=== PATIENT | male | born 1945 | race Caucasian/White ===

== ENCOUNTER 2022-02-07 13:29 | Inpatient (IN) ==
[2022-02-07 15:14] LABS: Basophils # (auto) 0.02 K/uL (0-0.2); Basophils % (auto) 0.1 %; Eosinophils # (auto) 0.07 K/uL (0-0.50); Eosinophils % (auto) 0.5 %; Hematocrit (blood only) 47.9 % (40.1-51.0); Hemoglobin 16.5 g/dl (14.0-18.0); Immature Granulocytes # (auto) 0.07 K/uL (0.00-0.02); Immature Granulocytes % (auto) 0.5 %; Lymphocytes # (auto) 1.41 K/uL (1.2-3.4); Lymphocytes % (auto) 9.3 %; Mean Corpuscular Hemoglobin 33.4 pg (25.0-34.0); Mean Corpuscular Hgb Conc 34.4 g/dL (32.0-36.0); Mean Platelet Volume 10.5 fL (9.4-12.4); Monocytes # (auto) 0.75 K/uL (0.24-0.82); Neutrophils # (auto) 12.82 K/uL (1.4-6.5); Neutrophils % (auto) 84.6 %; Platelet Count 149 K/uL (130-400); RDW Coefficient of Variation 13.1 % (11.5-14.5); RDW Standard Deviation 46.9 fL (36.4-46.3); Red Blood Count 4.94 M/uL (4.63-6.08); White Blood Count 15.14 K/ul (4.8-10.8)
[2022-02-07 15:22] LABS: Troponin I High Sensitivity 12.5 pg/ml (0-20)
[2022-02-07 15:30] LABS: Albumin Globulin Ratio 1.3 (0.9-2); Albumin Level 4.2 gm/dl (3.4-5.0); BUN Creatinine Ratio 23.4 (10-20); Bilirubin,Total 1.3 mg/dl (0.2-1.0); Calcium 10.4 mg/dl (8.5-10.1); Creatinine Clr Calc Pharmacy 56.4 ml/min; Est GFR (African American) 64.6 ml/min; Est GFR (Non-African American) 55.7 ml/min; Globulin 3.3 gm/dl (2.5-4.0); Potassium 4.1 mmol/L (3.5-5.1); Total Protein 7.5 gm/dl (6.0-8.3)
[2022-02-07 15:32] LABS: Influenza A virus by PCR Negative (Neg); Influenza B virus by PCR Negative (Neg); RSV by PCR Negative (Neg); SARS CoV2 RNA(COVID-19) Ceph NEGATIVE (Negative)
[2022-02-07] MEDS ORDERED: methylPREDNISolone 125 MG/2 ML VIAL IV STA (18:37)
[2022-02-07] MEDS ORDERED: diphenhydrAMINE 50 MG/ML VIAL IV STA (18:37)
--- NOTE | 2022-02-07 18:37 | Emergency Department Note ---
Impression & Plan Bilateral pneumonia, Hemoptysis ED Provider Note NAME: VENTURA LANCASTRE AGE: 77 SEX: M : 1945 ARRIVES VIA: Walk-In INFORMANT: Patient ED PROVIDER(S): Aldo Noonan DO CHIEF COMPLAINT: coughing up blood HPI: Patient is a 77-year-old male with a past medical history of COPD and a chronic cough which has been present for years. He notes that this has gotten worse over the past 2 to 3 weeks. He notes over the past 48 hours she started coughing up brown stuff yesterday and today he notes he will intermittently cough up a little bit of blood. Over the past 4 to 5 hours he coughed up blood about 2-3 times. Never bigger than a dime size and most the time and has little flecks of blood in the sputum. Denies any chest pain or belly pain. No nausea, vomiting, or diarrhea. He notes he does feel sore in the abdomen following coughing. ROS: See above HPI for pertinent positives & negatives. A total of 10 systems reviewed and were otherwise negative. PAST MEDICAL HISTORY:See Below PAST SURGICAL HISTORY:See Below FAMILY HISTORY:See Below SOCIAL HISTORY:See Below HOME MEDICATIONS:See Below ALLERGIES:See Below VITALS:See Below PHYSICAL EXAMINATION: GENERAL: Sitting up in bed, alert, well appearing, well nourished, no distress, non-toxic EYE EXAM: normal conjunctiva. OROPHARYNX: no exudate, no erythema, lips, buccal mucosa, and tongue normal and mucous membranes are moist NECK: supple, no nuchal rigidity, no adenopathy, non-tender LUNGS: Clear to auscultation. Normal chest wall mechanics HEART: no murmurs, S1 normal and S2 normal ABDOMEN: abdomen soft, non-tender, normo-active bowel sounds, no masses, no rebound or guarding. UPPER EXTREMITIES: upper extremities are grossly normal. LOWER EXTREMITIES: No pitting edema. Calves are equal bilateral NEURO EXAM: Normal sensorium, cranial nerves II-XII grossly intact, normal speech, no gross weakness of arms, no gross weakness of legs. MEDICAL DECISION MAKING: Patient 77-year-old male who presents ER for upper respiratory symptoms. IV was established blood work was obtained. Labs show leukocytosis 15,000. No significant anemia. INR unremarkable. BMP along with LFTs was unremarkable. T bili slightly elevated at 1.3. Troponin was negative. Influenza COVID and RSV was negative. CTA of the chest showed multifocal pneumonia. He was given IV Rocephin and azithromycin. Updated bedside. Discussed the hospitalist admitted for further work-up with his moderate curb 65 score. Triage Nursing notes reviewed. Limited review of prior medical records performed Vital Signs: reviewed and remarkable for no significant abnormalities Differential diagnosis: Cardiac ischemia, aortic dissection, pulmonary embolism, pneumothorax, pneumonia, pericarditis, myocarditis, esophageal rupture, GERD, cholecystitis, pancreatitis, musculoskeletal, as well as other pathologies. ER treatment provided: See below Diagnostics interpreted by me: ECG: Sinus rhythm rate of 91 First-degree AV block Right bundle branch block T wave inversion V1 through V3 QTC 462 Right bundle branch block is new comparison to 2011 Cardiac Monitoring: An order was placed for continuous cardiac monitoring. The monitor shows a rate of 90 with sinus rhythm. Laboratory studies: As stated above and show below. Imaging studies: CT angio chest as described above Consultation(s): Discussed with Sara Roque for further evaluation Procedures: none Critical Care: None Past Med/Surg History Social History Smoking Status: Former smoker Hx Alcohol Use: Yes Hx Substance Use: No Preferred Language: Chinese Communication Ability: Effective Occupational Therapy Technician Required: No Beliefs That Will Affect Care: None Current Living Situation: Alone Feels Safe at Home: Yes Safety Concerns: Feels Safe At This Time Allergies Allergies Allergy/AdvReac Type Severity Reaction Status Date / Time Iodinated Contrast Media AdvReac Unknown "GOT VERY Verified 03/04/15 10:46 HOT" (WITH MRI DYE) Home Meds Home Medications Medication Instructions Recorded Confirmed Aspirin Enteric Coated (Ecotrin Or 81 mg PO DAILY ##0 04/18/11 02/07/22 Generic *) LISINOPRIL (ZESTRIL) 30 mg PO DAILY ##0 04/18/11 02/07/22 CYANOCOBALAMIN (B-12) PO BID ##0 03/04/15 OXYCODONE/ACETAMINOPHEN 5MG/325MG 1 - 2 tab PO Q4H PRN Pain, Severe 02/07/22 02/07/22 (PERCOCET 5MG/325MG) Results & Data (ED) Vital Signs Vital Signs - 24 hr 02/07/22 13:42 02/07/22 14:32 02/07/22 14:32 Temperature 36.6 C Temperature Source Temporal Artery Scan Pulse Rate 101 H 78 Pulse Rate [Right Finger] Pulse Rate from SpO2 Sensor Pulse Rhythm [Right Finger] Pulse Strength [Right Finger] Respiratory Rate 18 19 19 Respiratory Effort / Characteristics Non-Labored Spontaneous Respiratory Depth Respiratory Pattern Blood Pressure 147/87 H Blood Pressure [Right Arm] Blood Pressure Mean 107 Blood Pressure Mean [Right Arm] Blood Pressure Position [Right Arm] Pulse Oximetry 95 96 96 Oxygen Delivery Method Room Air Room Air Room Air Sepsis Recent Fever Within 48 Hours No Sepsis New/Unexplained Change in Mental Status N/A Sepsis Action Taken by Nursing No Action Required Oxygen Flow Rate - Titration Pulse Oximetry Post Tiitration 02/07/22 18:30 02/07/22 18:30 02/07/22 20:00 Temperature Temperature Source Pulse Rate Pulse Rate [Right Finger] 88 83 Pulse Rate from SpO2 Sensor Pulse Rhythm [Right Finger] Regular Pulse Strength [Right Finger] Normal Normal Respiratory Rate 18 20 Respiratory Effort / Characteristics Non-Labored Non-Labored Spontaneous Respiratory Depth Normal Normal Respiratory Pattern Regular Blood Pressure Blood Pressure [Right Arm] 145/110 H 157/94 H Blood Pressure Mean Blood Pressure Mean [Right Arm] 121 115 Blood Pressure Position [Right Arm] Lying Pulse Oximetry 94 91 Oxygen Delivery Method Room Air Room Air Room Air Sepsis Recent Fever Within 48 Hours Sepsis New/Unexplained Change in Mental Status Sepsis Action Taken by Nursing Oxygen Flow Rate - Titration Pulse Oximetry Post Tiitration 02/07/22 21:00 02/07/22 20:41 02/07/22 20:50 Temperature Temperature Source Pulse Rate 76 74 Pulse Rate [Right Finger] Pulse Rate from SpO2 Sensor 76 72 Pulse Rhythm [Right Finger] Pulse Strength [Right Finger] Respiratory Rate 17 Respiratory Effort / Characteristics Respiratory Depth Respiratory Pattern Blood Pressure Blood Pressure [Right Arm] Blood Pressure Mean Blood Pressure Mean [Right Arm] Blood Pressure Position [Right Arm] Pulse Oximetry 87 L 91 90 Oxygen Delivery Method Room Air Sepsis Recent Fever Within 48 Hours Sepsis New/Unexplained Change in Mental Status Sepsis Action Taken by Nursing Oxygen Flow Rate - Titration 4 Pulse Oximetry Post Tiitration 91 02/07/22 21:00 02/07/22 21:10 02/07/22 21:20 Temperature Temperature Source Pulse Rate 75 73 74 Pulse Rate [Right Finger] Pulse Rate from SpO2 Sensor 78 73 74 Pulse Rhythm [Right Finger] Pulse Strength [Right Finger] Respiratory Rate 19 20 Respiratory Effort / Characteristics Respiratory Depth Respiratory Pattern Blood Pressure 157/94 H Blood Pressure [Right Arm] Blood Pressure Mean 115 Blood Pressure Mean [Right Arm] Blood Pressure Position [Right Arm] Pulse Oximetry 87 L 90 90 Oxygen Delivery Method Sepsis Recent Fever Within 48 Hours Sepsis New/Unexplained Change in Mental Status Sepsis Action Taken by Nursing Oxygen Flow Rate - Titration Pulse Oximetry Post Tiitration 02/07/22 21:30 02/07/22 21:40 Temperature Temperature Source Pulse Rate 84 80 Pulse Rate [Right Finger] Pulse Rate from SpO2 Sensor 82 81 Pulse Rhythm [Right Finger] Pulse Strength [Right Finger] Respiratory Rate 22 17 Respiratory Effort / Characteristics Respiratory Depth Respiratory Pattern Blood Pressure Blood Pressure [Right Arm] Blood Pressure Mean Blood Pressure Mean [Right Arm] Blood Pressure Position [Right Arm] Pulse Oximetry 91 91 Oxygen Delivery Method Sepsis Recent Fever Within 48 Hours Sepsis New/Unexplained Change in Mental Status Sepsis Action Taken by Nursing Oxygen Flow Rate - Titration Pulse Oximetry Post Tiitration Laboratory Data Result diagrams: 02/07/22 14:28 02/07/22 14:28 Lab Results 02/07/22 02/07/22 02/07/22 Range/Units 14:28 14:28 14:28 WBC 15.14 H (4.8-10.8) K/ul RBC 4.94 (4.63-6.08) M/uL Hgb 16.5 (14.0-18.0) g/dl Hct 47.9 (40.1-51.0) % MCV 97.0 (80.0-100.0) fL MCH 33.4 (25.0-34.0) pg MCHC 34.4 (32.0-36.0) g/dL RDW Std Deviation 46.9 H (36.4-46.3) fL RDW Coeff of Paula 13.1 (11.5-14.5) % Plt Count 149 (130-400) K/uL MPV 10.5 (9.4-12.4) fL Immature Gran % (Auto) 0.5 % Neut % (Auto) 84.6 % Lymph % (Auto) 9.3 % [place] % (Auto) 5.0 % Eos % (Auto) 0.5 % Baso % (Auto) 0.1 % Neut # (Auto) 12.82 H (1.4-6.5) K/uL Lymph # (Auto) 1.41 (1.2-3.4) K/uL [place] # (Auto) 0.75 (0.24-0.82) K/uL Eos # (Auto) 0.07 (0-0.50) K/uL Baso # (Auto) 0.02 (0-0.2) K/uL Immature Gran # (Auto) 0.07 H (0.00-0.02) K/uL PT Cancelled INR Cancelled APTT Cancelled PTT Ratio Cancelled Sodium 137 (136-145) mmol/L Potassium 4.1 (3.5-5.1) mmol/L Chloride 105 (98-107) mmol/L Carbon Dioxide 24 (21-32) mmol/L Anion Gap 8 (3-11) BUN 29 H (6-23) mg/dl Creatinine 1.24 (0.6-1.4) mg/dl Est Cr Clr Drug Dosing 56.4 ml/min Est GFR ( Amer) 64.6 ml/min Est GFR (Non-Af Amer) 55.7 ml/min BUN/Creatinine Ratio 23.4 H (10-20) Glucose 98 (70-99(Fasting)) mg/dl Calcium 10.4 H (8.5-10.1) mg/dl Magnesium 2.0 (1.7-2.4) mg/dl Total Bilirubin 1.3 H (0.2-1.0) mg/dl AST 15 (13-39) U/L ALT 15 (7-52) U/L Alkaline Phosphatase 40 (34-104) U/L Troponin I High Sens 12.5 (0-20) pg/ml Total Protein 7.5 (6.0-8.3) gm/dl Albumin 4.2 (3.4-5.0) gm/dl Globulin 3.3 (2.5-4.0) gm/dl Albumin/Globulin Ratio 1.3 (0.9-2) SARS-CoV-2 (PCR) (Negative) Influenza Type A (PCR) (Neg) Influenza Type B (PCR) (Neg) RSV (RT-PCR) (Neg) 02/07/22 02/07/22 Range/Units 14:28 19:29 WBC (4.8-10.8) K/ul RBC (4.63-6.08) M/uL Hgb (14.0-18.0) g/dl Hct (40.1-51.0) % MCV (80.0-100.0) fL MCH (25.0-34.0) pg MCHC (32.0-36.0) g/dL RDW Std Deviation (36.4-46.3) fL RDW Coeff of Paula (11.5-14.5) % Plt Count (130-400) K/uL MPV (9.4-12.4) fL Immature Gran % (Auto) % Neut % (Auto) % Lymph % (Auto) % [place] % (Auto) % Eos % (Auto) % Baso % (Auto) % Neut # (Auto) (1.4-6.5) K/uL Lymph # (Auto) (1.2-3.4) K/uL [place] # (Auto) (0.24-0.82) K/uL Eos # (Auto) (0-0.50) K/uL Baso # (Auto) (0-0.2) K/uL Immature Gran # (Auto) (0.00-0.02) K/uL PT 11.0 INR 1.0 APTT 28.5 PTT Ratio 1.0 Sodium (136-145) mmol/L Potassium (3.5-5.1) mmol/L Chloride (98-107) mmol/L Carbon Dioxide (21-32) mmol/L Anion Gap (3-11) BUN (6-23) mg/dl Creatinine (0.6-1.4) mg/dl Est Cr Clr Drug Dosing ml/min Est GFR ( Amer) ml/min Est GFR (Non-Af Amer) ml/min BUN/Creatinine Ratio (10-20) Glucose (70-99(Fasting)) mg/dl Calcium (8.5-10.1) mg/dl Magnesium (1.7-2.4) mg/dl Total Bilirubin (0.2-1.0) mg/dl AST (13-39) U/L ALT (7-52) U/L Alkaline Phosphatase (34-104) U/L Troponin I High Sens (0-20) pg/ml Total Protein (6.0-8.3) gm/dl Albumin (3.4-5.0) gm/dl Globulin (2.5-4.0) gm/dl Albumin/Globulin Ratio (0.9-2) SARS-CoV-2 (PCR) NEGATIVE (Negative) Influenza Type A (PCR) Negative (Neg) Influenza Type B (PCR) Negative (Neg) RSV (RT-PCR) Negative (Neg) Administered Medications Sodium Chloride (Nss 1000ml) 1,000 mls @ 100 mls/hr IV .Q10H ONE Stop: 02/08/22 06:18 Last Admin: 02/07/22 20:34 Dose: 100 mls/hr Documented By: TARIQ Discontinued Medications Albuterol (Albut/Ipratrop 3mg/0.5mg Neb 3 Ml Vial) 3 ml NEB NOW STA; Protocol Stop: 02/07/22 21:33 Last Admin: 02/07/22 21:42 Dose: 3 ml Documented By: TARIQ Benzonatate (Benzonatate 100 Mg Capsule) 100 mg PO NOW ONE Stop: 02/07/22 21:44 Last Admin: 02/07/22 22:30 Dose: 100 mg Documented By: TARIQ Diphenhydramine HCl (Diphenhydramine 50 Mg/Ml Vial) 25 mg IV NOW STA Stop: 02/07/22 18:38 Last Admin: 02/07/22 18:42 Dose: 25 mg Documented By: TUNG Doxycycline Hyclate (Doxycycline Hyclate 100 Mg Cap) 100 mg PO NOW STA Stop: 02/07/22 21:44 Last Admin: 02/07/22 22:30 Dose: 100 mg Documented By: TARIQ Ceftriaxone Sodium (Rocephin) 2,000 mg in 70 mls @ 140 mls/hr IV NOW STA Stop: 02/07/22 20:23 Last Infusion: 02/07/22 21:04 Dose: 0 mls/hr Documented By: Admin: 02/07/22 20:28 Dose: 140 mls/hr Documented By: TARIQ Azithromycin 500 mg/ Dextrose 255 mls @ 127.5 mls/hr IV NOW STA Stop: 02/07/22 21:53 Last Admin: 02/07/22 22:04 Dose: 127.5 mls/hr Documented By: KRISTOPHER Ioversol (Optiray 320 500ml) 106 ml IV ONCE ONE Stop: 02/07/22 19:19 Last Admin: 02/07/22 19:19 Dose: 106 ml Documented By: RHD Methylprednisolone (Methylprednisolone 125 Mg/2 Ml Vial) 125 mg IV NOW STA Stop: 02/07/22 18:38 Last Admin: 02/07/22 18:43 Dose: 125 mg Documented By: AP Imaging Data Radiologist's Impression: Chest X-Ray 02/07/22 13:50 SINGLE VIEW CHEST CLINICAL HISTORY: Dyspnea. FINDINGS: 2 AP, portable, upright chest radiographs are compared to study dated 04/18/2011. The heart is mildly enlarged noting atherosclerotic calcification of the thoracic aorta. The pulmonary vasculature is noncongested. Emphysema and chronic interstitial thickening is similar to previous. There is bibasilar airspace consolidation. No large pleural effusion or pneumothorax is seen. The skeletal structures are osteopenic. The bony thorax is grossly intact. IMPRESSION: 1. Cardiomegaly and emphysema. 2. Bibasilar airspace consolidation is typical for pneumonia/aspiration pneumonitis. Clinical correlation required and radiographic follow-up to resolution is recommended. ACT 112: Negative or not required by law. Electronically signed by: Alfonzo Yee M.D. 02/07/2022 7:23 PM Chest CTA 02/07/22 18:35 CT ANGIOGRAM OF THE CHEST CLINICAL HISTORY: Cough. Dyspnea. COMPARISON STUDY: Chest x-ray dated 02/07/2022. TECHNIQUE: Following the IV administration of 106 cc of Optiray 320, CT angiogram of the chest was performed from the upper abdomen to the thoracic inlet utilizing the pulmonary embolus protocol. Images are reviewed in the axial, sagittal, and coronal planes. 3-D MIPS images are created and assessed. IV contrast was administered without complication. A dose lowering technique was utilized adhering to the principles of ALARA. CT DOSE: 518.17 mGycm FINDINGS: Thyroid: Imaged portions of the thyroid gland are normal in size and attenuation. Thoracic aorta: There is atherosclerotic calcification of the thoracic aorta, which is normal in caliber and demonstrates standard 3-vessel arch anatomy. No dissection is seen. Pulmonary vasculature: The pulmonary trunk is normal in caliber. There are no filling defects identified in main, lobar, or segmental pulmonary branches to suggest pulmonary embolus. Heart: The heart is enlarged and without pericardial effusion. The coronary arteries are densely calcified. Lungs and pleural spaces: There is moderate emphysema. Dependent airspace consolidation is seen at both lung bases. Mild patchy consolidation is also seen in the right middle lobe. A 13 mm irregular opacity is seen in the right upper lobe on image #225. No pleural effusion is identified. The trachea is clear. Secretions are noted in the right mainstem bronchus. An 8 mm nodular opacity right middle lobe along the minor fissure is seen on image #109. Mediastinum: There is no mediastinal lymphadenopathy. Amy: Clear. Axillae: There is no axillary lymphadenopathy. Upper abdomen: There is a small hiatal hernia. A 4 cm cyst is partially visualized in the upper pole of the right kidney. Skeletal structures: The skeletal structures are osteopenic. No lytic or blastic bony lesions are seen. Degenerative change is noted in the shoulders and thoracic spine. IMPRESSION: 1. There is no evidence of pulmonary embolus in the main, lobar, or segmental pulmonary arteries. 2. Cardiomegaly and emphysema. 3. Bibasilar airspace consolidation is typical for pneumonia/aspiration pneumonitis. Clinical correlation will be required and radiographic follow-up to resolution is recommended. 4. A 13 mm irregular opacity in the right upper lobe may also be an inflammatory basis. A follow-up chest CT in 4 months time is recommended for reassessment as a small lung cancer could appear similar. 5. Additional findings as above. ACT 112: Positive. There are findings on this exam that require communication between the performing entity and the patient following Patient Test Result Information Act ([place] Act 112) guidelines. Electronically signed by: Alfonzo Yee M.D. 02/07/2022 7:42 PM Discharge Plan Visit Data Chief Complaint: Cough Stated Complaint: COUGHING UP BLOOD ED Provider: Aldo Noonan Discharge Problem: Bilateral pneumonia, Hemoptysis Discharge Instructions Interventions: ED Discharge Assessment Last Done: 02/07/22 22:03
[2022-02-07] MEDS ORDERED: OPTIRAY 320 500ml IV ONE (19:18)
--- NOTE | 2022-02-07 19:25 | XRay Report ---
SINGLE VIEW CHEST CLINICAL HISTORY: Dyspnea. FINDINGS: 2 AP, portable, upright chest radiographs are compared to study dated 04/18/2011. The heart i s mildly enlarged noting atherosclerotic calcification of the thoracic aorta. The pulmonary vasculatu re is noncongested. Emphysema and chronic interstitial thickening is similar to previous. There is bi basilar airspace consolidation. No large pleural effusion or pneumothorax is seen. The skeletal struc tures are osteopenic. The bony thorax is grossly intact. IMPRESSION: 1. Cardiomegaly and emphysema. 2. Bibasilar airspace consolidation is typical for pneumonia/aspiration pneumonitis. Clinical correla tion required and radiographic follow-up to resolution is recommended. ACT 112: Negative or not required by law. Electronically signed by: Alfonzo Yee M.D. 02/07/2022 7:23 PM
--- NOTE | 2022-02-07 19:43 | CT Scan Report ---
CT ANGIOGRAM OF THE CHEST CLINICAL HISTORY: Cough. Dyspnea. COMPARISON STUDY: Chest x-ray dated 02/07/2022. TECHNIQUE: Following the IV administration of 106 cc of Optiray 320, CT angiogram of the chest was pe rformed from the upper abdomen to the thoracic inlet utilizing the pulmonary embolus protocol. Images are reviewed in the axial, sagittal, and coronal planes. 3-D MIPS images are created and assessed. I V contrast was administered without complication. A dose lowering technique was utilized adhering to the principles of ALARA. CT DOSE: 518.17 mGycm FINDINGS: Thyroid: Imaged portions of the thyroid gland are normal in size and attenuation. Thoracic aorta: There is atherosclerotic calcification of the thoracic aorta, which is normal in jef ashely and demonstrates standard 3-vessel arch anatomy. No dissection is seen. Pulmonary vasculature: The pulmonary trunk is normal in caliber. There are no filling defects identif ied in main, lobar, or segmental pulmonary branches to suggest pulmonary embolus. Heart: The heart is enlarged and without pericardial effusion. The coronary arteries are densely calc ified. Lungs and pleural spaces: There is moderate emphysema. Dependent airspace consolidation is seen at dave th lung bases. Mild patchy consolidation is also seen in the right middle lobe. A 13 mm irregular opa [place] is seen in the right upper lobe on image #225. No pleural effusion is identified. The trachea i s clear. Secretions are noted in the right mainstem bronchus. An 8 mm nodular opacity right middle lo be along the minor fissure is seen on image #109. Mediastinum: There is no mediastinal lymphadenopathy. Amy: Clear. Axillae: There is no axillary lymphadenopathy. Upper abdomen: There is a small hiatal hernia. A 4 cm cyst is partially visualized in the upper pole of the right kidney. Skeletal structures: The skeletal structures are osteopenic. No lytic or blastic bony lesions are see n. Degenerative change is noted in the shoulders and thoracic spine. IMPRESSION: 1. There is no evidence of pulmonary embolus in the main, lobar, or segmental pulmonary arteries. 2. Cardiomegaly and emphysema. 3. Bibasilar airspace consolidation is typical for pneumonia/aspiration pneumonitis. Clinical correla tion will be required and radiographic follow-up to resolution is recommended. 4. A 13 mm irregular opacity in the right upper lobe may also be an inflammatory basis. A follow-up c hest CT in 4 months time is recommended for reassessment as a small lung cancer could appear similar. 5. Additional findings as above. ACT 112: Positive. There are findings on this exam that require communication between the performing entity and the patient following Patient Test Result Information Act ([place] Act 112) guidelines. Electronically signed by: Alfonzo Yee M.D. 02/07/2022 7:42 PM
[2022-02-07 19:53] LABS: Partial Thromboplastin Time 28.5 Seconds (21.0-31.0)
[2022-02-07] MEDS ORDERED: AZITHROMYCIN 500 MG in DEXTROSE 5% 250 ML IV STA (19:54)
[2022-02-07] MEDS ORDERED: cefTRIAXone SODIUM 2,000 MG/70 ML BAG IV STA (19:54)
[2022-02-07] MEDS ORDERED: SODIUM CHLORIDE 0.9% 1000ML 1,000 ML IV ONE (20:19)
[2022-02-07] MEDS ORDERED: ALBUT/IPRATROP 3MG/0.5MG NEB 3 ML VIAL NEB STA (21:32)
--- NOTE | 2022-02-07 21:35 | History & Physical Report ---
Date of Service February 07, 2022 Assessment & Plan (1) Acute hypoxemic respiratory failure: Plan: Secondary to COPD exacerbation from community-acquired pneumonia No overt sepsis for now Hemoptysis secondary to above Home aspirin contributory hypertension, slight elevated past history DVT as per records past tobacco abuse Medical telemetry Supplemental O2 Baseline ABG Ceftriaxone and doxycycline Nebs RTC, prednisone course Antitussives for hemoptysis Appropriate to hold home aspirin for now given hemoptysis Pulmonary consult Re: Hemoptysis DVT prophylaxis. SCDs Re: Hemoptysis Full code Patient would like to reestablish primary care at [facility] upon discharge. Text document was generated using [employer] voice recognition software. It may contain grammatical or spelling errors. Kindly contact undersigned for clarification of any documentation item in question. History of Present Illness Chief Complaint: Hemoptysis, worsening shortness of breath Primary Care Provider: CHASIDY Sloan, [place] in [place], [place] Patient would like to reestablish primary care at [facility] upon discharge. History obtained from patient and records. Medical history significant for COPD, hypertension, hyperlipidemia, urolithiasis, past history DVT as per records, past tobacco abuse. Last confinement 2011 under orthopedic service for left hip surgery. 2 weeks ago, patient chronic cough (which he attributes to Agent [place] exposure in [place]) noted to be worsening. Patient not sure about COVID-19 contacts. Has not received COVID-19 vaccination. Denies aspiration. 2 days ago, patient coughing out from brown junk later noted to have flecks of blood. No fever, no chills. Worsening shortness of breath on exertion. Chest tightness from coughing. No weight gain. Aching abdominal pain from coughing. 10 pound weight loss in 2 weeks as per patient. PCP directed patient to ER for further evaluation. O2 sats 80s at 1 point during ER stay. Solu-Medrol, Ceftriaxone and Azithromycin administered at the ER. 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 Allergies Allergy/AdvReac Type Severity Reaction Status Date / Time Iodinated Contrast Media AdvReac Unknown "GOT VERY Verified 03/04/15 10:46 HOT" (WITH MRI DYE) Home Medications Medication Instructions Recorded Confirmed Type Aspirin Enteric Coated (Ecotrin Or 81 mg PO DAILY ##0 04/18/11 02/07/22 History Generic *) LISINOPRIL (ZESTRIL) 30 mg PO DAILY ##0 04/18/11 02/07/22 History B12 1,000 mcg PO DAILY 02/07/22 02/07/22 History Vitamin C 500 mg PO DAILY 02/07/22 02/07/22 History albuterol sulfate 90 mcg/actuation 2 inh inhalation Q6H PRN 02/07/22 02/07/22 History aerosol inhaler Bronchospasm amlodipine 5 mg PO DAILY 02/07/22 02/07/22 History budesonide-formoterol 160 puff inhalation BID 02/07/22 02/07/22 History Past Med/Surg History Social History Smoking Status: Former smoker Hx Alcohol Use: Yes Hx Substance Use: No Preferred Language: Occitan Communication Ability: Effective 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 Beliefs That Will Affect Care: None Current Living Situation: Alone Feels Safe at Home: Yes Safety Concerns: Feels Safe At This Time Review of Systems Review of Systems: As per HPI, all other systems reviewed and negative Physical Exam Physical Exam: GENERAL: Comfortable, pleasant , slightly anxious, no respiratory distress SKIN: Normal color, warm HEENT: [place] palpebral conjunctivae, no ptosis, dry buccal mucosa, nasal cannula in place NECK : Supple, no tenderness CHEST : Decreased breath sounds, no tenderness HEART : RRR, no obvious murmurs ABDOMEN: Some distention, nontender EXTREMITIES : No LE swelling/tenderness, no other conspicuous deformities noted NEUROLOGIC : Coherent, no facial asymmetry, no other gross focality Results & Data Results & Data ([facility]) Vital Signs (Past 12 Hours) Vital Signs Temp Pulse Pulse Resp BP BP Pulse Ox 02/07/22 21:20 74 20 157/94 H 90 02/07/22 21:10 73 90 02/07/22 21:00 75 19 87 L 02/07/22 20:50 74 90 02/07/22 20:41 76 17 91 02/07/22 21:00 87 L 02/07/22 20:00 83 20 157/94 H 91 02/07/22 18:30 02/07/22 18:30 88 18 145/110 H 94 02/07/22 14:32 78 19 96 02/07/22 14:32 19 96 02/07/22 13:42 36.6 C 101 H 18 147/87 H 95 O2 Del Method 02/07/22 21:20 02/07/22 21:10 02/07/22 21:00 02/07/22 20:50 02/07/22 20:41 02/07/22 21:00 Room Air 02/07/22 20:00 Room Air 02/07/22 18:30 Room Air 02/07/22 18:30 Room Air 02/07/22 14:32 Room Air 02/07/22 14:32 Room Air 02/07/22 13:42 Room Air Laboratory Results Laboratory Results WBC 15.14 K/ul (4.8-10.8) H 02/07/22 14:28 RBC 4.94 M/uL (4.63-6.08) 02/07/22 14:28 Hgb 16.5 g/dl (14.0-18.0) 02/07/22 14:28 Hct 47.9 % (40.1-51.0) 02/07/22 14:28 MCV 97.0 fL (80.0-100.0) 02/07/22 14:28 MCH 33.4 pg (25.0-34.0) 02/07/22 14:28 MCHC 34.4 g/dL (32.0-36.0) 02/07/22 14:28 RDW Std Deviation 46.9 fL (36.4-46.3) H 02/07/22 14:28 RDW Coeff of Paula 13.1 % (11.5-14.5) 02/07/22 14:28 Plt Count 149 K/uL (130-400) 02/07/22 14:28 MPV 10.5 fL (9.4-12.4) 02/07/22 14:28 Immature Gran % (Auto) 0.5 % 02/07/22 14:28 Neut % (Auto) 84.6 % 02/07/22 14:28 Lymph % (Auto) 9.3 % 02/07/22 14:28 [place] % (Auto) 5.0 % 02/07/22 14:28 Eos % (Auto) 0.5 % 02/07/22 14:28 Baso % (Auto) 0.1 % 02/07/22 14:28 Neut # (Auto) 12.82 K/uL (1.4-6.5) H 02/07/22 14:28 Lymph # (Auto) 1.41 K/uL (1.2-3.4) 02/07/22 14: [place] # (Auto) 0.75 K/uL (0.24-0.82) 02/07/22 14:28 Eos # (Auto) 0.07 K/uL (0-0.50) 02/07/22 14: Baso # (Auto) 0.02 K/uL (0-0.2) 02/07/22 14: Immature Gran # (Auto) 0.07 K/uL (0.00-0.02) H 02/07/22 14: PT 11.0 Seconds (9.0-12.0) 02/07/22 19:29 INR 1.0 (0.9-1.1) 02/07/22 19:29 APTT 28.5 Seconds (21.0-31.0) 02/07/22 19: PTT Ratio 1.0 02/07/22 19:29 Sodium 137 mmol/L (136-145) 02/07/22 14:28 Potassium 4.1 mmol/L (3.5-5.1) 02/07/22 14: Chloride 105 mmol/L (98-107) 02/07/22 14: Carbon Dioxide 24 mmol/L (21-32) 02/07/22 14:28 Anion Gap 8 (3-11) 02/07/22 14:28 BUN 29 mg/dl (6-23) H 02/07/22 14:28 Creatinine 1.24 mg/dl (0.6-1.4) 02/07/22 14:28 Est Cr Clr Drug Dosing 56.4 ml/min 02/07/22 14:28 Est GFR ( Amer) 64.6 ml/min 02/07/22 14:28 Est GFR (Non-Af Amer) 55.7 ml/min 02/07/22 14:28 BUN/Creatinine Ratio 23.4 (10-20) H 02/07/22 14:28 Glucose 98 mg/dl (70-99(Fasting)) 02/07/22 14:28 Calcium 10.4 mg/dl (8.5-10.1) H 02/07/22 14:28 Magnesium 2.0 mg/dl (1.7-2.4) 02/07/22 14:28 Total Bilirubin 1.3 mg/dl (0.2-1.0) H 02/07/22 14:28 AST 15 U/L (13-39) 02/07/22 14:28 ALT 15 U/L (7-52) 02/07/22 14:28 Alkaline Phosphatase 40 U/L (34-104) 02/07/22 14:28 Troponin I High Sens 12.5 pg/ml (0-20) 02/07/22 14:28 Total Protein 7.5 gm/dl (6.0-8.3) 02/07/22 14:28 Albumin 4.2 gm/dl (3.4-5.0) 02/07/22 14:28 Globulin 3.3 gm/dl (2.5-4.0) 02/07/22 14:28 Albumin/Globulin Ratio 1.3 (0.9-2) 02/07/22 14:28 SARS-CoV-2 (PCR) NEGATIVE (Negative) 02/07/22 14:28 Influenza Type A (PCR) Negative (Neg) 02/07/22 14:28 Influenza Type B (PCR) Negative (Neg) 02/07/22 14:28 RSV (RT-PCR) Negative (Neg) 02/07/22 14:28 Impressions Chest X-Ray 02/07/22 13:50 SINGLE VIEW CHEST CLINICAL HISTORY: Dyspnea. FINDINGS: 2 AP, portable, upright chest radiographs are compared to study dated 04/18/2011. The heart is mildly enlarged noting atherosclerotic calcification of the thoracic aorta. The pulmonary vasculature is noncongested. Emphysema and chronic interstitial thickening is similar to previous. There is bibasilar airspace consolidation. No large pleural effusion or pneumothorax is seen. The skeletal structures are osteopenic. The bony thorax is grossly intact. IMPRESSION: 1. Cardiomegaly and emphysema. 2. Bibasilar airspace consolidation is typical for pneumonia/aspiration pneumonitis. Clinical correlation required and radiographic follow-up to resolution is recommended. ACT 112: Negative or not required by law. Electronically signed by: Alfonzo Yee M.D. 02/07/2022 7:23 PM Chest CTA 02/07/22 18:35 CT ANGIOGRAM OF THE CHEST CLINICAL HISTORY: Cough. Dyspnea. COMPARISON STUDY: Chest x-ray dated 02/07/2022. TECHNIQUE: Following the IV administration of 106 cc of Optiray 320, CT angiogram of the chest was performed from the upper abdomen to the thoracic inlet utilizing the pulmonary embolus protocol. Images are reviewed in the axial, sagittal, and coronal planes. 3-D MIPS images are created and assessed. IV contrast was administered without complication. A dose lowering technique was utilized adhering to the principles of ALARA. CT DOSE: 518.17 mGycm FINDINGS: Thyroid: Imaged portions of the thyroid gland are normal in size and attenuation. Thoracic aorta: There is atherosclerotic calcification of the thoracic aorta, which is normal in caliber and demonstrates standard 3-vessel arch anatomy. No dissection is seen. Pulmonary vasculature: The pulmonary trunk is normal in caliber. There are no filling defects identified in main, lobar, or segmental pulmonary branches to suggest pulmonary embolus. Heart: The heart is enlarged and without pericardial effusion. The coronary arteries are densely calcified. Lungs and pleural spaces: There is moderate emphysema. Dependent airspace consolidation is seen at both lung bases. Mild patchy consolidation is also seen in the right middle lobe. A 13 mm irregular opacity is seen in the right upper lobe on image #225. No pleural effusion is identified. The trachea is clear. Secretions are noted in the right mainstem bronchus. An 8 mm nodular opacity right middle lobe along the minor fissure is seen on image #109. Mediastinum: There is no mediastinal lymphadenopathy. Amy: Clear. Axillae: There is no axillary lymphadenopathy. Upper abdomen: There is a small hiatal hernia. A 4 cm cyst is partially visualized in the upper pole of the right kidney. Skeletal structures: The skeletal structures are osteopenic. No lytic or blastic bony lesions are seen. Degenerative change is noted in the shoulders and thoracic spine. IMPRESSION: 1. There is no evidence of pulmonary embolus in the main, lobar, or segmental pulmonary arteries. 2. Cardiomegaly and emphysema. 3. Bibasilar airspace consolidation is typical for pneumonia/aspiration pneumonitis. Clinical correlation will be required and radiographic follow-up to resolution is recommended. 4. A 13 mm irregular opacity in the right upper lobe may also be an inflammatory basis. A follow-up chest CT in 4 months time is recommended for reassessment as a small lung cancer could appear similar. 5. Additional findings as above. ACT 112: Positive. There are findings on this exam that require communication between the performing entity and the patient following Patient Test Result Information Act ([place] Act 112) guidelines. Electronically signed by: Alfonzo Yee M.D. 02/07/2022 7:42 PM Diagnostic Findings EKG as per my interpretation : Rate 90, NSR, normal axis, RBBB, no ischemia
[2022-02-07] MEDS ORDERED: BENZONATATE 100 MG CAPSULE PO ONE (21:43)
[2022-02-07] MEDS ORDERED: PROMETHAZINE HCL 12.5 MG in SODIUM CHLORIDE 0.9% 50 ML IV PRN (21:43)
[2022-02-07] MEDS ORDERED: traMADol HCL 50 MG TABLET PO PRN (21:43)
[2022-02-07] MEDS ORDERED: DOXYCYCLINE HYCLATE 100 MG CAP PO STA (21:43)
[2022-02-07] MEDS ORDERED: BENZONATATE 100 MG CAPSULE PO PRN (22:03)
[2022-02-07 22:52] LABS: Base Excess ABG -3.3 mEq/L (-9-1.8); HCO3 ABG 20 mmol/L (19-24); Oxygen Saturation ABG 99.6 % (90-95); PCO2 ABG 30 mmHg (35-46); PO2 ABG 111 mmHg (80-95); pH ABG 7.43 (7.35-7.45)
[2022-02-07 22:57] LABS: Allen Test POS (Pos)
[2022-02-07] MEDS ORDERED: amLODIPine BESYLATE 5 MG TAB PO ONE (23:30)
[2022-02-08] MEDS ORDERED: ACETAMINOPHEN 325 MG TAB PO PRN (01:44)
[2022-02-08] MEDS ORDERED: XOPENEX/ATROVENT 1.25mg/0.5MG NEB COMBO NEB SCH (07:00)
[2022-02-08 07:19] LABS: Hematocrit (blood only) 44.1 % (40.1-51.0); Mean Corpuscular Hemoglobin 32.8 pg (25.0-34.0); Mean Corpuscular Volume 96.3 fL (80.0-100.0); Mean Platelet Volume 10.3 fL (9.4-12.4); Platelet Count 147 K/uL (130-400); RDW Coefficient of Variation 12.6 % (11.5-14.5); RDW Standard Deviation 44.7 fL (36.4-46.3); Red Blood Count 4.58 M/uL (4.63-6.08); White Blood Count 8.09 K/ul (4.8-10.8)
--- NOTE | 2022-02-08 07:20 | Pulmonary Consultation ---
Date of Consultation February 08, 2022 Assessment & Plan (1) Bilateral pneumonia: (2) Hemoptysis: (3) COPD with acute exacerbation: (4) Pulmonary nodule: Plan CT chest 02/07/2022 personally reviewed: Centrilobular emphysema appreciated bilaterally Mucus appreciated in the right main, groundglass opacity in the right middle lobe 8 mm right middle lobe pulmonary nodule Bilateral lower lobe consolidative changes No mediastinal adenopathy 02/07/2022: ABG 7.43/30/111 on 4 L -- Hemoptysis Likely secondary to extensive coughing Antitussive medication [id number] Avoid flutter valve for the time being -- Multilobar pneumonia Bilateral lower lobes Continue with antibiotics for 5 to 7 days -- COPD emphysema On Symbicort and Spiriva at home -- Pulmonary nodule 8 mm right middle lobe pulmonary nodule Repeat CT chest in 3-4 months Plan: Continue with antitussive medication [id number] Continue with prednisone Anoro while in the hospital Complete the course of doxycycline for 5 days Please note the above document was generated using voice recognition software. It may contain grammatical, syntax or spelling errors.Any formal questions or concerns about the content, text or information contained within the body of this dictation should be directly addressed to the provider for clarification. History of Present Illness Attending Physician: Chacho Haynes MD History of Present Illness 77-year-old male came to the hospital with complaints of worsening shortness of breath and hemoptysis Past medical history: Hypertension, dyslipidemia, ex-smoker At the time of examination patient says that he has been having issues with coughing and bringing up phlegm since last 2 weeks. Yesterday while he was coughing he brought up blood which was bright red. He did not have any episodes of hemoptysis since coming to the hospital. He is bringing up phlegm which is dark brown in color. I personally looked at it. Denies any chest pain. No headache, no blurry vision No dysuria, diarrhea Patient has lost some weight approximately 10 pounds in the last month or so which seems to be unintentional. Denies any nausea or vomiting. Social history: [id number] smoking history, quit at the age of 60. 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 Pets: No birds reported nearby Asthma: No family history of asthma Lung cancer: No history of lung cancer in the family as per the patient Allergies Allergy/AdvReac Type Severity Reaction Status Date / Time Iodinated Contrast Media AdvReac Unknown "GOT VERY Verified 03/04/15 10:46 HOT" (WITH MRI DYE) Home Medications Medication Instructions Recorded Confirmed Type Aspirin Enteric Coated (Ecotrin Or 81 mg PO DAILY ##0 04/18/11 02/07/22 History Generic *) LISINOPRIL (ZESTRIL) 30 mg PO DAILY ##0 04/18/11 02/07/22 History B12 1,000 mcg PO DAILY 02/07/22 02/07/22 History Vitamin C 500 mg PO DAILY 02/07/22 02/07/22 History albuterol sulfate 90 mcg/actuation 2 inh inhalation Q6H PRN 02/07/22 02/07/22 History aerosol inhaler Bronchospasm amlodipine 5 mg PO DAILY 02/07/22 02/07/22 History budesonide-formoterol 160 puff inhalation BID 02/07/22 02/07/22 History Patient History Social History Smoking Status: Former smoker Hx Alcohol Use: Yes Hx Substance Use: No Preferred Language: Moroccan Communication Ability: Effective 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: No Beliefs That Will Affect Care: None Current Living Situation: Alone Feels Safe at Home: Yes Safety Concerns: Feels Safe At This Time Review of Systems Review of Systems: All systems reviewed & are unremarkable except as noted in HPI & below Physical Exam Physical Exam: Constitutional: No acute distress HEENT: EOMI, PERRLA Respiratory system: Decreased air entry bilaterally, no wheeze, no rhonchi, positive crackles bilateral lower lobes CVS: S1-S2 positive, no murmurs or gallops Abdomen: Soft, nontender, nondistended, positive bowel sounds x4 Extremities: +2 pulses bilaterally radialis/ dorsalis pedis, no cyanosis, no edema Neuro: Awake alert oriented x3 Psych: Normal mood and affect G/U: No [place] Skin: no rashes, warm and dry Lymphatic: no cervical or axillary lymphadenopathy Results & Data Results & Data ([facility]) Vital Signs (Past 12 Hours) Vital Signs Temp Pulse Pulse Resp BP BP BP 02/08/22 01:14 77 02/08/22 02:11 02/08/22 02:11 36.8 C 76 18 149/85 H 02/08/22 00:40 81 17 104/55 L 02/07/22 22:55 02/07/22 22:55 37.1 C 94 H 19 161/83 H 02/07/22 22:20 93 H 19 02/07/22 22:10 97 H 19 02/07/22 22:00 91 H 22 02/07/22 21:50 85 22 02/07/22 21:40 80 17 02/07/22 21:30 84 22 02/07/22 22:00 96 H 20 161/83 H 02/07/22 21:20 74 20 157/94 H 02/07/22 21:10 73 02/07/22 21:00 75 19 02/07/22 20:50 74 02/07/22 20:41 76 17 02/07/22 21:00 02/07/22 20:00 83 20 157/94 H Pulse Ox O2 Del Method O2 Flow Rate 02/08/22 01:14 02/08/22 02:11 Nasal Cannula 4 02/08/22 02:11 92 Nasal Cannula 4 02/08/22 00:40 93 Nasal Cannula 4 02/07/22 22:55 Nasal Cannula 4 02/07/22 22:55 93 Nasal Cannula 4 02/07/22 22:20 92 02/07/22 22:10 92 02/07/22 22:00 93 02/07/22 21:50 94 02/07/22 21:40 91 02/07/22 21:30 91 02/07/22 22:00 92 Nasal Cannula 4 02/07/22 21:20 90 02/07/22 21:10 90 02/07/22 21:00 87 L 02/07/22 20:50 90 02/07/22 20:41 91 02/07/22 21:00 87 L Room Air 02/07/22 20:00 91 Room Air Laboratory Results 02/08/22 06:57 02/08/22 06:57 PG Care Time/CCT Total # of Minutes Spent Total Time Spent with Patient: Total time spent is greater than 50% in coordination of care (as documented) at patient's floor/unit and/or counseling patient: Coding Level of Care Code 46637 Initial Inpt Care Lvl 3 Diagnoses Bilateral pneumonia J18.9 Hemoptysis R04.2 COPD with acute exacerbation J44.1 Pulmonary nodule R91.1
[2022-02-08] MEDS: LEVALBUTEROL 1.25MG/0.5ML NEB INH SCH ×3 (07:29→19:15)
[2022-02-08] MEDS: IPRATROPIUM BROMIDE NEB SOLN 0.02% 2.5 ML VIAL INH SCH ×3 (07:29→19:15)
[2022-02-08 07:40] LABS: BUN Creatinine Ratio 26.9 (10-20); Calcium 9.5 mg/dl (8.5-10.1); Creatinine Clr Calc Pharmacy 67.2 ml/min; Est GFR (African American) 79.9 ml/min; Est GFR (Non-African American) 68.9 ml/min; Potassium 4.1 mmol/L (3.5-5.1)
[2022-02-08 08:26] LABS: Basophils # (auto) 0.01 K/uL (0-0.2); Basophils % (auto) 0.1 %; Echinocytes 1+; Immature Granulocytes # (auto) 0.07 K/uL (0.00-0.02); Immature Granulocytes % (auto) 0.9 %; Lymphocytes # (auto) 0.49 K/uL (1.2-3.4); Lymphocytes % (auto) 6.1 %; Monocytes # (auto) 0.12 K/uL (0.24-0.82); Monocytes % (auto) 1.5 %; Neutrophils % (auto) 91.4 %
[2022-02-08] MEDS: amLODIPine BESYLATE 5 MG TAB PO SCH (09:16)
[2022-02-08] MEDS: predniSONE 20 MG TAB PO SCH (09:16)
[2022-02-08] MEDS: DOXYCYCLINE HYCLATE 100 MG CAP PO SCH ×2 (09:16→20:43)
[2022-02-08] MEDS: lisinopril 10 MG TAB PO SCH (09:16)
[2022-02-08] MEDS: UMECLIDINIUM/VILANTEROL 62.5/25MCG 7 PUFFS/INHALER INH SCH (09:16)
[2022-02-08] MEDS ORDERED: CALCIUM CARBONATE 500 MG CHEWABLE TAB PO PRN (10:16)
[2022-02-08] MEDS ORDERED: CALCIUM CARBONATE 500 MG CHEWABLE TAB PO STA (10:22)
--- NOTE | 2022-02-08 11:29 | Electrocardiogram Report ---
Test Reason : Blood Pressure : / mmHG Vent. Rate : 091 BPM Atrial Rate : 091 BPM P-R Int : 210 ms QRS Dur : 126 ms QT Int : 376 ms P-R-T Axes : 078 057 053 degrees QTc Int : 462 ms Sinus rhythm with 1st degree A-V block Right bundle branch block Cannot rule out Inferior infarct , age undetermined Abnormal ECG When compared with ECG of 18-APR-2011 12:08, Vent. rate has increased BY 35 BPM Right bundle branch block is now Present Minimal criteria for Inferior infarct are now Present Confirmed by Herman Rdz ([id number]) on 02/08/2022 11:29:02 AM Referred By: Confirmed By:Deuce Rdz
--- NOTE | 2022-02-08 17:11 | Hospitalist Progress Note ---
Date of Service February 08, 2022 Assessment & Plan (1) Acute hypoxemic respiratory failure: Plan: Secondary to COPD exacerbation from community-acquired pneumonia Chest x-ray: bibasilar pneumonia Sputum culture: Ending collection Currently remains on room air, clinically improving Hemoptysis resolving Pulmonary service consulted Continue ceftriaxone plus doxycycline, nebs, prednisone 40 mg daily, Anoro Ellipta Hemoptysis secondary to above Home aspirin contributory hypertension, slight elevated --Likely from stress, steroids Hydralazine as needed ordered past history DVT as per records --SCDs for now, Lovenox/heparin contraindicated in light of hemoptysis Frequent ambulation past tobacco abuse DVT prophylaxis. SCDs Re: Hemoptysis Full code plan of care discussed with patient in detail and at length all questions answered he is understanding, agreeable, comfortable with the plan of care Admission and Anticipated Discharge Date Admission Date: February 07, 2022 Subjective Follow-up for COPD exacerbation, bibasilar pneumonia, etc. Seen sitting up in bed comfortable, not in distress States he feels improved compared to yesterday Still having some cough productive of brown sputum Denies hemoptysis Denies chest pain No abdominal pain, nausea vomiting No other symptom Review of Systems Review of Systems: all noted and negative except for above Physical Exam Physical Exam: General- oriented x 3, not in distress, speaks in sentences with no effort or accessory muscle use Eyes- anicteric Neck- no JVD Lungs-positive mild rhonchi bilateral bases, no wheezing, good air entry bilateral Heart- normal rate, regular rhythm; no murmurs Abdomen- normal bowel sounds, nondistended, soft, nontender Extremities- no pretibial edema, no calf tenderness Neuro- alert, oriented x 3; no gross focal neurologic deficits Skin- warm & dry Results & Data Results & Data ([facility]) Vital Signs (Past 12 Hours) Vital Signs Temp Pulse Pulse Resp BP Pulse Ox O2 Del Method 02/08/22 16:13 86 16 158/80 H 95 Room Air 02/08/22 15:38 94 H 02/08/22 12:30 Room Air 02/08/22 15:00 36.5 C 93 H 20 160/67 H 93 Room Air 02/08/22 13:29 85 16 92 Room Air 02/08/22 11:31 36.4 C L 75 18 152/78 H 92 Room Air 02/08/22 08:06 66 02/08/22 07:50 36.4 C L 71 20 156/77 H 95 Room Air 02/08/22 07:32 68 18 98 Nasal Cannula O2 Flow Rate 02/08/22 16:13 02/08/22 15:38 02/08/22 12:30 02/08/22 15:00 02/08/22 13:29 02/08/22 11:31 02/08/22 08:06 02/08/22 07:50 02/08/22 07:32 4 all noted and reviewed including below
[2022-02-08] MEDS ORDERED: cefTRIAXone SODIUM 2,000 MG in DEXTROSE 5% 50 ML IV SCH (21:00)
[2022-02-09] MEDS: IPRATROPIUM BROMIDE NEB SOLN 0.02% 2.5 ML VIAL INH SCH ×3 (00:27→12:42)
[2022-02-09] MEDS: LEVALBUTEROL 1.25MG/0.5ML NEB INH SCH ×3 (00:27→12:42)
[2022-02-09] MEDS: UMECLIDINIUM/VILANTEROL 62.5/25MCG 7 PUFFS/INHALER INH SCH (08:30)
[2022-02-09] MEDS: predniSONE 20 MG TAB PO SCH (08:30)
[2022-02-09] MEDS: lisinopril 10 MG TAB PO SCH (08:30)
[2022-02-09] MEDS: amLODIPine BESYLATE 5 MG TAB PO SCH (08:30)
[2022-02-09] MEDS: DOXYCYCLINE HYCLATE 100 MG CAP PO SCH (08:30)
--- NOTE | 2022-02-09 10:31 | Pulmonology Progress Note ---
Date of Service February 09, 2022 Assessment & Plan (1) Bilateral pneumonia: (2) Hemoptysis: (3) COPD with acute exacerbation: (4) Pulmonary nodule: Plan CT chest 02/07/2022 personally reviewed: Centrilobular emphysema appreciated bilaterally Mucus appreciated in the right main, groundglass opacity in the right middle lobe 8 mm right middle lobe pulmonary nodule Bilateral lower lobe consolidative changes No mediastinal adenopathy 02/07/2022: ABG 7.43/30/111 on 4 L -- Hemoptysis --> resolved Likely secondary to extensive coughing Antitussive medication [id number] Avoid flutter valve for the time being -- Multilobar pneumonia Bilateral lower lobes Continue with antibiotics for 5 to 7 days -- COPD emphysema On Symbicort and Spiriva at home -- Pulmonary nodule 8 mm right middle lobe pulmonary nodule Repeat CT chest in 3-4 months Plan: Complete the course of antibiotic. Prednisone 40 mg for 2 more days followed by 20 mg for 3 days and then stop Would recommend antitussive medication [id number] for 3 more days and then as needed Can leave he has Wixela 5-50 MCG 1 puff twice a day along with Spiriva 2 puffs once a day. Continue with the same regimen Repeat CAT scan in 3-4 months for pulmonary nodule Patient pulmonary follow-up Case was discussed with Dr. Haynes Please note the above document was generated using voice recognition software. It may contain grammatical, syntax or spelling errors.Any formal questions or concerns about the content, text or information contained within the body of this dictation should be directly addressed to the provider for clarification. Admission and Anticipated Discharge Date Admission Date: February 07, 2022 Subjective Patient seen and examined at bedside. No acute distress, no adverse events overnight. Denies any headache, no nausea, no vomiting Shortness of breath is improved. He was saturating 93-94% on room air. Bringing up clear phlegm. Denies any hemoptysis is coming to the hospital Review of Systems Review of Systems: All systems reviewed & are unremarkable except as noted in Subjective Physical Exam Physical Exam: Constitutional: No acute distress HEENT: EOMI, PERRLA Respiratory system: Decreased air entry bilaterally, no wheeze, no rhonchi, positive crackles bilateral lower lobes CVS: S1-S2 positive, no murmurs or gallops Abdomen: Soft, nontender, nondistended, positive bowel sounds x4 Extremities: +2 pulses bilaterally radialis/ dorsalis pedis, no cyanosis, no edema Neuro: Awake alert oriented x3 Psych: Normal mood and affect G/U: No Langston Skin: no rashes, warm and dry Lymphatic: no cervical or axillary lymphadenopathy Results & Data Results & Data ([facility]) Vital Signs (Past 12 Hours) Vital Signs Temp Pulse Pulse Resp BP Pulse Ox O2 Del Method 02/09/22 08:45 Room Air 02/09/22 08:23 36.3 C L 69 18 155/82 H 92 Room Air 02/09/22 07:14 76 16 96 Room Air 02/09/22 07:08 64 02/09/22 04:16 36.5 C 66 18 148/83 H 95 Room Air 02/09/22 00:43 85 02/08/22 23:28 36.5 C 72 18 130/69 94 Room Air Laboratory Results 02/08/22 06:57 02/08/22 06:57 PG Care Time/CCT Total # of Minutes Spent Total Time Spent with Patient: Total time spent is greater than 50% in coordination of care (as documented) at patient's floor/unit and/or counseling patient: Coding Level of Care Code 06982 Subseq Hosp Care Lvl 2 Diagnoses Bilateral pneumonia J18.9 Hemoptysis R04.2 COPD with acute exacerbation J44.1 Pulmonary nodule R91.1
[2022-02-09 12:02] VITALS: TEMP 98.1
[2022-02-09 12:43] VITALS: PULSE 74; O2SAT 95
--- NOTE | 2022-02-09 13:40 | Hospitalist Progress Note ---
Date of Service February 09, 2022 Assessment & Plan (1) Acute hypoxemic respiratory failure: Plan: Secondary to COPD exacerbation from multilobar pneumonia Chest x-ray: bibasilar pneumonia Given ceftriaxone plus doxycycline Xopenex/Atrovent nebs 4 times daily Prednisone 40 mg daily Usual inhalers continue Pulmonary service consulted-Dr. Cade Patient clinically improved, now on room air Discharge plan: Cefdinir plus doxycycline x5 more days to complete 7-day course Prednisone 40 mg x 2 days, 20 mg then 3 days, then stop Guaifenesin/codeine 3 times daily x3 days, then as needed Continue usual inhalers including Wixela and Spiriva Follow-up with primary care physician in 1 week Hemoptysis secondary to above Resolved Pulmonary nodule 8 mm right middle lobe pulmonary nodule Repeat CT chest in 3-4 months hypertension, slight elevated --Likely from stress, steroids Continue amlodipine, lisinopril past history DVT as per records --SCDs for now, Lovenox/heparin contraindicated in light of hemoptysis Frequent ambulation past tobacco abuse DVT prophylaxis. SCDs Re: Hemoptysis Full code Disposition Discharge to home Follow-up with PCP in 1 week plan of care discussed with patient in detail and at length all questions answered he is understanding, agreeable, comfortable with the plan of care Admission and Anticipated Discharge Date Admission Date: February 07, 2022 Subjective Follow-up for pneumonia, COPD exacerbation, etc. Seen resting in bed, comfortable, not in distress Sitting up States he feels better overall Minimal cough, no hemoptysis No chest pain, fevers or chills No shortness of breath No other symptoms States he is ready for discharge today Review of Systems Review of Systems: all noted and negative except for above Physical Exam Physical Exam: General- oriented x 3, not in distress, speaks in sentences with no effort or accessory muscle use Eyes- anicteric Neck- no JVD Lungs- clear breath sounds bilaterally, no crackles or wheezing noted Heart- normal rate, regular rhythm; no murmurs Abdomen- normal bowel sounds, nondistended, soft, nontender Extremities- no pretibial edema, no calf tenderness Neuro- alert, oriented x 3; no gross focal neurologic deficits Skin- warm & dry Results & Data Results & Data ([facility]) Vital Signs (Past 12 Hours) Vital Signs Temp Pulse Pulse Resp BP Pulse Ox O2 Del Method 02/09/22 12:42 74 18 95 Room Air 02/09/22 12:01 36.7 C 67 18 165/74 H 93 Room Air 02/09/22 08:45 Room Air 02/09/22 08:23 36.3 C L 69 18 155/82 H 92 Room Air 02/09/22 07:14 76 16 96 Room Air 02/09/22 07:08 64 02/09/22 04:16 36.5 C 66 18 148/83 H 95 Room Air all noted and reviewed including below
--- NOTE | 2022-02-09 13:40 | Discharge Summary ---
Discharge Summary Date of Service February 09, 2022 Notes For Next Care Provider PATIENT NEEDS REPEAT CT OF THE CHEST IN 3 TO 4 MONTHS TO REEVALUATE PULMONARY NODULE. Medication Changes From Visit Cefdinir plus doxycycline x5 more days to complete 7-day course Prednisone 40 mg x 2 days, 20 mg then 3 days, then stop Guaifenesin/codeine 3 times daily x3 days, then as needed Continue usual inhalers including Wixela and Spiriva Admission HPI Per Admitting Provider History obtained from patient and records. Medical history significant for COPD, hypertension, hyperlipidemia, urolithiasis, past history DVT as per records, past tobacco abuse. Last confinement 2011 under orthopedic service for left hip surgery. 2 weeks ago, patient chronic cough (which he attributes to Agent [place] exposure in [place]) noted to be worsening. Patient not sure about COVID-19 contacts. Has not received COVID-19 vaccination. Denies aspiration. 2 days ago, patient coughing out from brown junk later noted to have flecks of blood. No fever, no chills. Worsening shortness of breath on exertion. Chest tightness from coughing. No weight gain. Aching abdominal pain from coughing. 10 pound weight loss in 2 weeks as per patient. PCP directed patient to ER for further evaluation. O2 sats 80s at 1 point during ER stay. Solu-Medrol, Ceftriaxone and Azithromycin administered at the ER. 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 Admission Exam Per Admitting Provider GENERAL: Comfortable, pleasant , slightly anxious, no respiratory distress SKIN: Normal color, warm HEENT: [place] palpebral conjunctivae, no ptosis, dry buccal mucosa, nasal cannula in place NECK : Supple, no tenderness CHEST : Decreased breath sounds, no tenderness HEART : RRR, no obvious murmurs ABDOMEN: Some distention, nontender EXTREMITIES : No LE swelling/tenderness, no other conspicuous deformities noted NEUROLOGIC : Coherent, no facial asymmetry, no other gross focality Principal Dx & Hospital Course #1 = Principal Diagnosis (1) Acute hypoxemic respiratory failure: Secondary to COPD exacerbation from multilobar pneumonia Chest x-ray: bibasilar pneumonia Given ceftriaxone plus doxycycline Xopenex/Atrovent nebs 4 times daily Prednisone 40 mg daily Usual inhalers continue Pulmonary service consulted-Dr. Cade Patient clinically improved, now on room air Discharge plan: Cefdinir plus doxycycline x5 more days to complete 7-day course Prednisone 40 mg x 2 days, 20 mg then 3 days, then stop Guaifenesin/codeine 3 times daily x3 days, then as needed Continue usual inhalers including Wixela and Spiriva Follow-up with primary care physician in 1 week Hemoptysis secondary to above Resolved Pulmonary nodule 8 mm right middle lobe pulmonary nodule Repeat CT chest in 3-4 months hypertension, slight elevated --Likely from stress, steroids Continue amlodipine, lisinopril past history DVT as per records --SCDs for now, Lovenox/heparin contraindicated in light of hemoptysis Frequent ambulation past tobacco abuse DVT prophylaxis. SCDs Re: Hemoptysis Full code Disposition Discharge to home Follow-up with PCP in 1 week plan of care discussed with patient in detail and at length all questions answered he is understanding, agreeable, comfortable with the plan of care Discharge Exam General- oriented x 3, not in distress, speaks in sentences with no effort or accessory muscle use Eyes- anicteric Neck- no JVD Lungs- clear breath sounds bilaterally, no rales/wheezes Heart- normal rate, regular rhythm; no murmurs Abdomen- normal bowel sounds, nondistended, soft, nontender Extremities- no pretibial edema, no calf tenderness Neuro- alert, oriented x 3; no gross focal neurologic deficits Skin- warm & dry Updated Medication List Medication Instructions Recorded Confirmed Type Aspirin Enteric Coated (Ecotrin Or 81 mg PO DAILY ##0 04/18/11 02/07/22 History Generic *) LISINOPRIL (ZESTRIL) 30 mg PO DAILY ##0 04/18/11 02/07/22 History B12 1,000 mcg PO DAILY 02/07/22 02/07/22 History Vitamin C 500 mg PO DAILY 02/07/22 02/07/22 History albuterol sulfate 90 mcg/actuation 2 inh inhalation Q6H PRN 02/07/22 02/07/22 History aerosol inhaler Bronchospasm amlodipine 5 mg PO DAILY 02/07/22 02/07/22 History budesonide-formoterol 160 puff inhalation BID 02/07/22 02/07/22 History cefdinir 300 mg capsule 300 mg PO BID 5 days #10 caps 02/09/22 Rx codeine 10 mg-guaifenesin 100 mg/5 10 ml PO Q8 #120 mL 02/09/22 Rx mL oral liquid doxycycline hyclate 100 mg capsule 100 mg PO BID 5 days #10 caps 02/09/22 Rx ipratropium bromide 0.02 % 0.5 mg (2.5 mL) inhalation Q6R PRN 02/09/22 Rx solution for inhalation shortness of breath or wheezing #75 mL levalbuterol HCl 1.25 mg/0.5 mL 1.25 mg (0.5 mL) inhalation Q6R 02/09/22 Rx solution for nebulization #30 ea prednisone 10 mg tablet 10 mg PO UD #14 tabs 02/09/22 Rx Hospital Stay Data Consultations 02/07/22 20:05 ED Decision to Admit Stat 02/07/22 22:03 Consult Pulmonology Routine Diagnostic Imagining Performed 02/07/22 18:35 CT angio chest PE protocol Stat COMPARISON STUDY: Chest x-ray dated 02/07/2022. TECHNIQUE: Following the IV administration of 106 cc of Optiray 320, CT angiog nick of the chest was performed from the upper abdomen to the thoracic inlet utilizing the pulmonary embolus protocol. Images are reviewed in the axial, sagittal, and coronal planes. 3-D MIPS images are created and assessed. IV contrast was administered without complication. A dose lowering technique was utilized adhering to the principles of ALARA. CT DOSE: 518.17 mGycm FINDINGS: Thyroid: Imaged portions of the thyroid gland are normal in size and attenuation. Thoracic aorta: There is atherosclerotic calcification of the thoracic aorta, which is normal in caliber and demonstrates standard 3-vessel arch anatomy. No dissection is seen. Pulmonary vasculature: The pulmonary trunk is normal in caliber. There are no filling defects identified in main, lobar, or segmental pulmonary branches to suggest pulmonary embolus. Heart: The heart is enlarged and without pericardial effusion. The coronary arteries are densely calcified. Lungs and pleural spaces: There is moderate emphysema. Dependent airspace consolidation is seen at both lung bases. Mild patchy consolidation is also seen in the right middle lobe. A 13 mm irregular opacity is seen in the right upper lobe on image #225. No pleural effusion is identified. The trachea is clear. Secretions are noted in the right mainstem bronchus. An 8 mm nodular opacity right middle lobe along the minor fissure is seen on image #109. Mediastinum: There is no mediastinal lymphadenopathy. Amy: Clear. Axillae: There is no axillary lymphadenopathy. Upper abdomen: There is a small hiatal hernia. A 4 cm cyst is partially visualized in the upper pole of the right kidney. Skeletal structures: The skeletal structures are osteopenic. No lytic or blastic bony lesions are seen. Degenerative change is noted in the shoulders and thoracic spine. IMPRESSION: 1. There is no evidence of pulmonary embolus in the main, lobar, or segmental pulmonary arteries. 2. Cardiomegaly and emphysema. 3. Bibasilar airspace consolidation is typical for pneumonia/aspiration pneumonitis. Clinical correlation will be required and radiographic follow-up to resolution is recommended. 4. A 13 mm irregular opacity in the right upper lobe may also be an inflammatory basis. A follow-up chest CT in 4 months time is recommended for reassessment as a small lung cancer could appear similar. 5. Additional findings as above. ACT 112: Positive. There are findings on this exam that require communication between the performing entity and the patient following Patient Test Result Information Act ([place] Act 112) guidelines. Electronically signed by: Alfonzo Yee M.D. 02/07/2022 7:42 PM Dictated:02/07/221934 Transcribed: 02/07/221934 Pending Results Patient Have Any Pending Studies at Discharge: Yes Discharge Instructions Given to Patient (Per Discharging Provider) PLEASE REFER TO YOUR NEW MEDICATION LIST AND FOLLOW INSTRUCTIONS CAREFULLY. YOUR NEW MEDICATIONS INCLUDE: Prednisone taper as follows- Take 40 mg daily x2 days, then Take 20 mg daily x3 days, then stop Cefdinir, doxycycline-antibiotic for pneumonia Guaifenesin/codeine-for cough; no driving/operating machines when taking this medication as it can cause drowsiness Continue taking your usual inhalers. PLEASE CALL YOUR PRIMARY CARE PHYSICIAN OR RETURN TO THE ER IF WITH WORSENING OF SYMPTOMS, INCLUDING Worsening cough, blood in the sputum, shortness of breath, chest pain, fever, weakness, etc. FOLLOW UP WITH PRIMARY CARE PHYSICIAN in 1 week. REST AT HOME, FOLLOW-UP WITH PRIMARY CARE PHYSICIAN NEXT WEEK, PRIOR TO RETURNING TO WORK. YOU NEED A REPEAT CAT SCAN OF THE CHEST IN 3 TO 4 MONTHS TO REEVALUATE LUNG NODULE. Total Time Total Time Spent Total Time Spent (In Minutes): >30 minutes
[2022-02-09 13:46] VITALS: BP 104/55
== END 2022-02-09 14:21 | disposition home or self-care (01) | DRG 193 ==
LOC: ED 13:29 → EDINP 21:43 → 2N 02-08 01:30

== ENCOUNTER 2023-10-16 12:08 | Observation (INO) ==
[2023-10-16] MEDS: hydrALAZINE HCL 20 MG/ML VIAL IV STA (12:54)
[2023-10-16 12:56] LABS: Basophils # (auto) 0.03 K/uL (0.00-0.20); Basophils % (auto) 0.7 %; Eosinophils # (auto) 0.27 K/uL (0.00-0.50); Eosinophils % (auto) 6.1 %; Hematocrit (blood only) 48.4 % (42.0-52.0); Hemoglobin 16.3 g/dl (14.0-18.0); Lymphocytes # (auto) 1.39 K/uL (1.20-3.40); Lymphocytes % (auto) 31.2 %; Mean Corpuscular Hemoglobin 31.5 pg (25.0-34.0); Mean Corpuscular Hgb Conc 33.7 g/dL (32.0-36.0); Mean Corpuscular Volume 93.4 fL (80.0-100.0); Monocytes # (auto) 0.43 K/uL (0.11-0.59); Monocytes % (auto) 9.6 %; Neutrophils # (auto) 2.34 K/uL (1.40-6.50); Neutrophils % (auto) 52.4 %; Platelet Count 151 K/uL (130-400); RDW Coefficient of Variation 13.1 % (11.5-14.5); RDW Standard Deviation 44.8 fL (36.4-46.3); Red Blood Count 5.18 M/uL (4.70-6.10); White Blood Count 4.46 K/ul (4.8-10.8)
--- NOTE | 2023-10-16 13:05 | Emergency Department Note ---
Impression & Plan Hypertensive emergency, Non-ST elevation CT (NSTEMI) ED Provider Note HISTORY OF PRESENT ILLNESS: Patient is a 78-year-old male presenting with hypertension. Patient reports he was at the eye doctor today to get a procedure performed in which they were going to remove blood from the back of his eye by sticking a needle into it. He states that on his initial arrival to the clinic his blood pressure was taken and it was in the 170s. He states that after the procedure his blood pressure was over 200 and the eye doctor referred him to the emergency department. Patient reports he takes lisinopril 30 mg daily and took his dose this morning. He denies any chest pain or shortness of breath. He reports he was having blurry vision for the past month and that is why he booked his eye doctor appointment. He denies any numbness or tingling or weakness in his extremities. Denies any history of cardiac stents. Denies any DVT or PE history. He reports he is on baby aspirin daily. Denies any pain complaints on arrival to the ER. He denies any abdominal pain, nausea or vomiting. ROS: as above PHYSICAL EXAM: Constitutional: Patient appears in no acute distress. HENT: Head: Normocephalic and atraumatic. Eyes: EOMI, PERRL. Pupils are dilated. Mouth/Throat: Mucous membranes moist. Neck: Trachea midline. Neck supple. Cardiovascular: RRR, No murmurs, rubs or gallops. Intact distal pulses. Pulmonary/Chest: No respiratory distress. Breath sounds clear and equal bilaterally. No wheezes or rales. Abdominal: Abdomen soft, no tenderness, rebound or guarding. Musculoskeletal: No edema, tenderness or deformity noted. Skin: Warm and dry. No rash, erythema, pallor or cyanosis Psychiatric: Appropriate mood and affect for situation. Neurological: Alert and keenly responsive. CN II-XII grossly intact, moving all extremities equally and fully. MDM: - Vitals signs showed hypertension and bradycardia. - History obtained via patient. History as above. - Chronic conditions affecting care: HTN; positive AMELIA; pulmonary nodule - Differential diagnoses include, but are not limited to: Intracranial hemorrhage; ACS; acute kidney injury; hypertensive urgency - Order placed for continuous cardiac monitoring. At this time, monitor showed rate of 95 bpm with normal sinus rhythm, per my interpretation. - External medical records reviewed. Discharge summary dated 02/09/2022 was reviewed. Patient was admitted at that time for acute hypoxemic respiratory failure secondary to COPD exacerbation for multilobar pneumonia. - Patient initially given 10 mg IV hydralazine for systolic blood pressure in the 220s. His blood pressure did trend down to 183 systolic. However, at 14:21, the patient's blood pressure was 216/109. - EKG interpreted by myself showed normal sinus rhythm. Rate 57 bpm. QT 426. No acute ischemic changes. Patient noted to have a right bundle branch block. - Laboratory workup interpreted by myself showed slight leukopenia (WBC 4.46); normal PT/INR; stable electrolytes; normal creatinine; elevated troponin (31.4); normal lipase - CT head wo contrast negative for acute pathology. - Patient's blood pressure trended up again. Given hypertension and elevated troponin, patient technically meets hypertensive emergency criteria. NSTEMI likely type II in nature secondary to patient's hypertension. - Discussion was had with caseworker protective services about patient's case and need for admission - Hospitalist consulted for admission - Patient admitted to [facility] for further evaluation and management. ASSESSMENT AND PLAN: Diagnosis: Hypertensive emergency; NSTEMI Plan: Admit Past Med/Surg History Problem List Non-ST elevation CT (NSTEMI) (Acute) Hypertensive emergency (Acute) Pulmonary nodule COPD with acute exacerbation Acute hypoxemic respiratory failure Hemoptysis (Acute) Bilateral pneumonia (Acute) Right kidney stone (Acute) Right inguinal hernia (Acute) Positive AMELIA (antinuclear antibody) Medical History Hypertension Surgical History Hip joint replacement status Social History Smoking Status: Never smoker Hx Alcohol Use: Yes (Rare) Hx Substance Use: No Preferred Language: Greenlandic Communication Ability: Effective Area Relief Pilot Required: No Beliefs That Will Affect Care: None Current Living Situation: Alone Feels Safe at Home: Yes Assistive Devices: None Allergies Allergies Allergy/AdvReac Type Severity Reaction Status Date / Time Iodinated Contrast Media AdvReac Unknown "GOT VERY Verified 10/03/22 07:57 HOT" (WITH MRI DYE) Home Meds Home Medications Medication Instructions Recorded Confirmed albuterol sulfate 90 mcg/actuation 2 inh inhalation Q6H PRN 02/07/22 10/03/22 aerosol inhaler Bronchospasm budesonide-formoterol 160 puff inhalation BID 02/07/22 10/03/22 amlodipine 5 mg tablet 5 mg PO DAILY 10/03/22 10/03/22 ascorbate calcium (vitamin C) 500 500 mg PO DAILY 10/03/22 10/03/22 mg tablet aspirin 81 mg tablet,delayed 81 mg PO DAILY 10/03/22 10/03/22 release (Adult Low Dose Aspirin) lisinopril 10 mg tablet 10 mg PO DAILY 10/03/22 10/03/22 mecobalamin (vitamin B12) 500 mcg mcg PO 10/03/22 10/03/22 chewable tablet Previous Rx's Medication Instructions Recorded ipratropium bromide 0.02 % 0.5 mg (2.5 mL) inhalation Q6R PRN 02/09/22 solution for inhalation shortness of breath or wheezing #75 mL levalbuterol HCl 1.25 mg/0.5 mL 1.25 mg (0.5 mL) inhalation Q6R 02/09/22 solution for nebulization #30 ea Results & Data (ED) Vital Signs Vital Signs - 24 hr 10/16/23 12:16 10/16/23 12:30 10/16/23 12:31 Temperature 36.1 C L Temperature Source Temporal Artery Scan Pulse Rate 80 56 L 55 L Pulse Rate [Apical] Pulse Rate from SpO2 Sensor Pulse Rhythm Regular Pulse Strength Normal Respiratory Rate 20 14 Respiratory Effort / Characteristics Non-Labored Spontaneous Respiratory Depth Normal Respiratory Pattern Blood Pressure 228/111 H Blood Pressure [Right Arm] Blood Pressure Mean 150 Blood Pressure Mean [Right Arm] Blood Pressure Position Sitting Blood Pressure Position [Right Arm] Pulse Oximetry 92 Oxygen Delivery Method Room Air Sepsis Recent Fever Within 48 Hours No Sepsis New/Unexplained Change in Mental Status N/A Sepsis Action Taken by Nursing No Action Required 10/16/23 12:51 10/16/23 12:54 10/16/23 13:00 Temperature Temperature Source Pulse Rate 59 L Pulse Rate [Apical] Pulse Rate from SpO2 Sensor 59 L Pulse Rhythm Pulse Strength Respiratory Rate 16 Respiratory Effort / Characteristics Respiratory Depth Respiratory Pattern Blood Pressure 202/119 H 191/151 H Blood Pressure [Right Arm] Blood Pressure Mean 188 174 Blood Pressure Mean [Right Arm] Blood Pressure Position Blood Pressure Position [Right Arm] Pulse Oximetry 97 Oxygen Delivery Method Sepsis Recent Fever Within 48 Hours Sepsis New/Unexplained Change in Mental Status Sepsis Action Taken by Nursing 10/16/23 13:11 10/16/23 13:12 10/16/23 13:24 Temperature Temperature Source Pulse Rate 77 Pulse Rate [Apical] 76 Pulse Rate from SpO2 Sensor 77 Pulse Rhythm Pulse Strength Respiratory Rate 16 13 Respiratory Effort / Characteristics Non-Labored Spontaneous Respiratory Depth Normal Respiratory Pattern Blood Pressure 212/120 H Blood Pressure [Right Arm] 198/124 H Blood Pressure Mean 135 Blood Pressure Mean [Right Arm] 148 Blood Pressure Position Blood Pressure Position [Right Arm] Pulse Oximetry 98 98 Oxygen Delivery Method Room Air Sepsis Recent Fever Within 48 Hours Sepsis New/Unexplained Change in Mental Status Sepsis Action Taken by Nursing 10/16/23 13:24 10/16/23 13:26 10/16/23 13:26 Temperature Temperature Source Pulse Rate 75 Pulse Rate [Apical] 79 Pulse Rate from SpO2 Sensor 80 Pulse Rhythm Pulse Strength Respiratory Rate 14 Respiratory Effort / Characteristics Respiratory Depth Respiratory Pattern Blood Pressure 183/107 H Blood Pressure [Right Arm] 183/107 H Blood Pressure Mean 119 Blood Pressure Mean [Right Arm] 132 Blood Pressure Position Blood Pressure Position [Right Arm] Lying Pulse Oximetry 98 Oxygen Delivery Method Room Air Sepsis Recent Fever Within 48 Hours Sepsis New/Unexplained Change in Mental Status Sepsis Action Taken by Nursing 10/16/23 13:30 10/16/23 13:42 10/16/23 13:57 Temperature Temperature Source Pulse Rate 83 94 H Pulse Rate [Apical] Pulse Rate from SpO2 Sensor 82 96 H Pulse Rhythm Pulse Strength Respiratory Rate 16 15 Respiratory Effort / Characteristics Respiratory Depth Respiratory Pattern Blood Pressure 177/99 H Blood Pressure [Right Arm] Blood Pressure Mean 122 Blood Pressure Mean [Right Arm] Blood Pressure Position Blood Pressure Position [Right Arm] Pulse Oximetry 97 96 Oxygen Delivery Method Sepsis Recent Fever Within 48 Hours Sepsis New/Unexplained Change in Mental Status Sepsis Action Taken by Nursing 10/16/23 14:01 10/16/23 14:18 10/16/23 14:21 Temperature Temperature Source Pulse Rate 93 H 97 H Pulse Rate [Apical] Pulse Rate from SpO2 Sensor 98 H Pulse Rhythm Pulse Strength Respiratory Rate 21 19 Respiratory Effort / Characteristics Respiratory Depth Respiratory Pattern Blood Pressure 216/109 H Blood Pressure [Right Arm] Blood Pressure Mean 131 Blood Pressure Mean [Right Arm] Blood Pressure Position Blood Pressure Position [Right Arm] Pulse Oximetry 98 Oxygen Delivery Method Sepsis Recent Fever Within 48 Hours Sepsis New/Unexplained Change in Mental Status Sepsis Action Taken by Nursing 10/16/23 14:32 Temperature Temperature Source Pulse Rate Pulse Rate [Apical] 96 H Pulse Rate from SpO2 Sensor Pulse Rhythm Pulse Strength Respiratory Rate 20 Respiratory Effort / Characteristics Non-Labored Spontaneous Respiratory Depth Normal Respiratory Pattern Regular Blood Pressure Blood Pressure [Right Arm] 184/122 H Blood Pressure Mean Blood Pressure Mean [Right Arm] 142 Blood Pressure Position Blood Pressure Position [Right Arm] Lying Pulse Oximetry 98 Oxygen Delivery Method Room Air Sepsis Recent Fever Within 48 Hours Sepsis New/Unexplained Change in Mental Status Sepsis Action Taken by Nursing Laboratory Data 10/16/23 12:27 10/16/23 12:27 Lab Results 10/16/23 Range/Units 12:27 WBC 4.46 L (4.8-10.8) K/ul RBC 5.18 (4.70-6.10) M/uL Hgb 16.3 (14.0-18.0) g/dl Hct 48.4 (42.0-52.0) % MCV 93.4 (80.0-100.0) fL MCH 31.5 (25.0-34.0) pg MCHC 33.7 (32.0-36.0) g/dL RDW Std Deviation 44.8 (36.4-46.3) fL RDW Coeff of Paula 13.1 (11.5-14.5) % Plt Count 151 (130-400) K/uL MPV 10.0 (9.4-12.4) fL Immature Gran % (Auto) 0.0 % Neut % (Auto) 52.4 % Lymph % (Auto) 31.2 % Walsh % (Auto) 9.6 % Eos % (Auto) 6.1 % Baso % (Auto) 0.7 % Neut # (Auto) 2.34 (1.40-6.50) K/uL Lymph # (Auto) 1.39 (1.20-3.40) K/uL Walsh # (Auto) 0.43 (0.11-0.59) K/uL Eos # (Auto) 0.27 (0.00-0.50) K/uL Baso # (Auto) 0.03 (0.00-0.20) K/uL Immature Gran # (Auto) 0.00 L (0.01-0.20) K/uL PT 10.7 (9.0-12.0) Seconds INR 1.0 (0.9-1.1) Sodium 139 (136-145) mmol/L Potassium 4.8 (3.5-5.1) mmol/L Chloride 105 (98-107) mmol/L Carbon Dioxide 29 (21-32) mmol/L Anion Gap 5 (3-11) BUN 13 (6-23) mg/dl Creatinine 1.06 (0.6-1.4) mg/dl Est Cr Clr Drug Dosing 63.9 ml/min Est GFR ( Amer) 77.5 ml/min Est GFR (Non-Af Amer) 66.9 ml/min BUN/Creatinine Ratio 12.3 (10-20) Glucose 102 H (70-99(Fasting)) mg/dl Calcium 9.8 (8.6-10.3) mg/dl Total Bilirubin 0.7 (0.2-1.0) mg/dl AST 18 (13-39) U/L ALT 13 (7-52) U/L Alkaline Phosphatase 57 (34-104) U/L Troponin I High Sens 31.4 H (0-20) pg/ml Total Protein 7.6 (6.0-8.3) gm/dl Albumin 4.6 (3.4-5.0) gm/dl Globulin 3.0 (2.5-4.0) gm/dl Albumin/Globulin Ratio 1.5 (0.9-2) Lipase 15 (11-82) U/L Administered Medications Discontinued Medications Hydralazine HCl (Hydralazine Hcl 20 Mg/Ml Vial) 10 mg IV NOW STA Stop: 10/16/23 12:22 Last Admin: 10/16/23 12:54 Dose: 10 mg Documented By: APRIL Imaging Data Radiologist's Impression: Head CT 10/16/23 12:21 CT OF THE HEAD WITHOUT CONTRAST CLINICAL HISTORY: Hypertensive urgency. COMPARISON STUDY: No previous studies for comparison. CT DOSE: 703.85 mGy.cm TECHNIQUE: Helical axial images of the head were obtained without IV contrast. Automated exposure control was utilized for the study. A dose lowering technique was utilized adhering to the principles of ALARA. FINDINGS: No acute intracranial hemorrhage, midline shift or mass effect is present. White matter hypodensities favor small vessel disease. The ventricular system is unremarkable. The basal cisterns are patent. No extra-axial collections are present. There are no findings to suggest acute dural sinus thrombosis or acute territorial infarct. No significant calvarial abnormalities are present. Visualized portions of the sinuses and mastoid air cells are clear. IMPRESSION: No acute intracranial findings. ACT 112: Negative or not required by law. Electronically signed by: To Croft M.D. 10/16/2023 2:05 PM Discharge Plan Visit Data Chief Complaint: Hypertension Stated Complaint: HYPERTENSION ED Provider: Cheyenne Alvarado Discharge Problem: Hypertensive emergency, Non-ST elevation CT (NSTEMI) Forms Stand Alone Forms: [facility] Prescriptions Prescriptions: No Action amlodipine 5 mg tablet 5 mg PO DAILY aspirin [Adult Low Dose Aspirin] 81 mg tablet,delayed release (DR/EC) 81 mg PO DAILY mecobalamin (vitamin B12) 500 mcg tablet,chewable PO lisinopril 10 mg tablet 10 mg PO DAILY ascorbate calcium (vitamin C) 500 mg tablet 500 mg PO DAILY albuterol sulfate 90 mcg/actuation HFA aerosol inhaler 2 inh INHALATION Q6H PRN (Reason: Bronchospasm) budesonide-formoterol 160 puff inhalation BID Rx Instructions: 160-4.5 ipratropium bromide 0.02 % Solution 0.5 mg inhalation Q6R PRN (Reason: shortness of breath or wheezing) Qty: 75 1RF levalbuterol HCl 1.25 mg/0.5 mL Solution For Nebulization 1.25 mg inhalation Q6R Qty: 30 1RF Referrals Referrals: [facility] [Primary Care Provider] -
[2023-10-16 13:08] LABS: Albumin Globulin Ratio 1.5 (0.9-2); Albumin Level 4.6 gm/dl (3.4-5.0); BUN Creatinine Ratio 12.3 (10-20); Bilirubin,Total 0.7 mg/dl (0.2-1.0); Calcium 9.8 mg/dl (8.6-10.3); Creatinine Clr Calc Pharmacy 63.9 ml/min; Est GFR (African American) 77.5 ml/min; Est GFR (Non-African American) 66.9 ml/min; Potassium 4.8 mmol/L (3.5-5.1); Total Protein 7.6 gm/dl (6.0-8.3)
[2023-10-16 13:13] LABS: Troponin I High Sensitivity 31.4 pg/ml (0-20)
[2023-10-16 13:28] LABS: Prothrombin Time 10.7 Seconds (9.0-12.0)
--- NOTE | 2023-10-16 14:06 | CT Scan Report ---
CT OF THE HEAD WITHOUT CONTRAST CLINICAL HISTORY: Hypertensive urgency. COMPARISON STUDY: No previous studies for comparison. CT DOSE: 703.85 mGy.cm TECHNIQUE: Helical axial images of the head were obtained without IV contrast. Automated exposure con trol was utilized for the study. A dose lowering technique was utilized adhering to the principles o f ALARA. FINDINGS: No acute intracranial hemorrhage, midline shift or mass effect is present. White matter hyp odensities favor small vessel disease. The ventricular system is unremarkable. The basal cisterns are patent. No extra-axial collections are present. There are no findings to suggest acute dural sinus t hrombosis or acute territorial infarct. No significant calvarial abnormalities are present. Visualize d portions of the sinuses and mastoid air cells are clear. IMPRESSION: No acute intracranial findings. ACT 112: Negative or not required by law. Electronically signed by: To Croft M.D. 10/16/2023 2:05 PM
--- NOTE | 2023-10-16 14:36 | History & Physical Report ---
Date of Service October 16, 2023 Assessment & Plan (1) Hypertensive urgency: (2) Elevated troponin: Plan Bhavesh Espana is a 78y/o M with PMHx significant for COPD, HTN, dyslipidemia, history of urolithiasis, lupus erythematosus and history tobacco use disorder [quit 20 years ago, was previously 1-2 pack/day] who presented to the ED for evaluation via outpatient referral secondary to elevated blood pressure. Patient was at [facility] in [place] this afternoon for a procedure regarding a "blown blood vessel" in his right eye. He was referred here secondary to an elevated systolic blood pressure in the 200s after undergoing the procedure in the clinic. Hypertensive Urgency Elevated Troponin [Likely Reactive] BP 228/111 upon presentation to ED; He was administered 10mg IV hydralazine and his BP improved to 177/99. Patient is on 30mg lisinopril daily, which he reports taking this morning. Then his BP started to increase once again to 216/109 at time of sign-out; Ordered him 5mg amlodipine and 12.5 HCTZ in the ED - BP improved to 151/96. Communication order placed for goal SBP in the 150s at least overnight. Will proceed with 12.5mg HCTZ and lisinopril 30mg in the morning. Continue to closely monitor BP with continuous cardiac monitoring. PRN IV hydralazine 5mg Q4H for SBP>160 ordered. His trop was slightly elevated at 31.4 on presentation, repeat trop was 22.2 at 14:24. Will continue to trend trop Q6H x 3, follow results closely. EKG with chest pain PRN. Patient denies any chest pain on admission, EKG without ischemic changes. Will obtain echocardiogram given history of uncontrolled BP per patient & elevated trop - follow results. COPD Can continue home medications. Patient reports chronic SOB due to history of agent orange exposure. However, patient does not require supplemental oxygen therapy at home. 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 DVT Prophylaxis: SCDs Code Status: FULL CODE PCP: [facility] Disposition: Observation in Med/Surg + Telemetry - Likely discharge home tomorrow if BP downtrends slowly and remains stable. Will require optimization of blood pressure medication therapy. Patient seen in collaboration with Dr. Haynes. Please see addendum. I spent a total of 45 minutes coordinating, documenting, and providing care for this patient excluding time spent in the performance of separately billed services. This included personally reviewing all current laboratories and imaging studies, medical reconciliation, outpatient chart review and discussion with specialists. This chart was completed in part utilizing Speech Voice Recognition Software. Grammatical errors, random word insertions, pronoun errors, and incomplete sentences are an occasional consequence of this system due to software limitations, ambient noise, and hardware issues. Any formal questions or concerns about the content, text, or information contained within the body of this dictation should be directly addressed to the provider for clarification. History of Present Illness Chief Complaint: Hypertension Primary Care Provider: [facility] Bhavesh Espana is a 78y/o M with PMHx significant for COPD, HTN, dyslipidemia, history of urolithiasis, lupus erythematosus and history tobacco use disorder [quit 20 years ago, was previously 1-2 pack/day] who presented to the ED for evaluation via outpatient referral secondary to elevated blood pressure. History obtained from patient and associated chart review. Patient was at [facility] in [place] this afternoon for a procedure regarding a "blown blood vessel" in his right eye. He was referred here secondary to an elevated systolic blood pressure in the 200s after undergoing the procedure in the clinic. He reports that he was to initially be transported here via EMS, but he decided to drive himself to the ED. Patient reports that he took his 30mg of lisinopril this morning and has not missed any doses recently. He used to check his blood pressure routinely at home, however he has not been doing so for a few months. He states that his blood pressure has not been under control for some time. He follows with the [facility] for primary care needs. He denies any chest pain, SOB, lightheaded/dizziness or headaches. Mentions he had a minor headache about a week ago, but it went away quickly with some Tylenol. Patient reports that he has been dealing with some blurry vision in both eyes for the past few months, which is why he was seeing an lithographic stripper in the first place. He was previously told that his blurry vision is secondary to uncontrolled blood pressure. He denies any numbness or tingling in his extremities. No history of cardiac stents or history of DVT/PE. He is on 81mg aspirin daily, which he took this morning. Allergies Allergy/AdvReac Type Severity Reaction Status Date / Time Iodinated Contrast Media AdvReac Unknown "GOT VERY Verified 10/03/22 07:57 HOT" (WITH MRI DYE) Home Medications Medication Instructions Recorded Confirmed Type albuterol sulfate 90 mcg/actuation 2 inh inhalation Q6H PRN 02/07/22 10/16/23 History aerosol inhaler Bronchospasm ipratropium bromide 0.02 % 0.5 mg (2.5 mL) inhalation Q6R PRN 02/09/22 10/16/23 Rx solution for inhalation shortness of breath or wheezing #75 mL levalbuterol HCl 1.25 mg/0.5 mL 1.25 mg (0.5 mL) inhalation Q6R 02/09/22 10/16/23 Rx solution for nebulization #30 ea ascorbate calcium (vitamin C) 500 500 mg PO DAILY 10/03/22 10/16/23 History mg tablet aspirin 81 mg tablet,delayed 81 mg PO DAILY 10/03/22 10/16/23 History release (Adult Low Dose Aspirin) lisinopril 10 mg tablet 30 mg PO DAILY 10/03/22 10/16/23 History mecobalamin (vitamin B12) 500 mcg 500 mcg PO DAILY 10/03/22 10/16/23 History chewable tablet budesonide-formoterol HFA 160 2 puff inhalation BID 10/16/23 10/16/23 History mcg-4.5 mcg/actuation aerosol inhaler (Symbicort) Past Med/Surg History Problem List (Updated 10/16/23 @ 15:56 by Sugey Branch PA-C) Elevated troponin Hypertensive urgency Non-ST elevation CT (NSTEMI) (Acute) Hypertensive emergency (Acute) Pulmonary nodule COPD with acute exacerbation Acute hypoxemic respiratory failure Hemoptysis (Acute) Bilateral pneumonia (Acute) Right kidney stone (Acute) Right inguinal hernia (Acute) Positive AMELIA (antinuclear antibody) Medical History Tobacco use disorder Hypertension Surgical History Hip joint replacement status Social History Smoking Status: Never smoker Hx Alcohol Use: Yes (Rare) Hx Substance Use: No Preferred Language: Tajik Communication Ability: Effective Vice President Digital Strategist Required: No Beliefs That Will Affect Care: None Current Living Situation: Alone Feels Safe at Home: Yes Assistive Devices: None Review of Systems Review of Systems: At least ten systems reviewed and negative, except as noted in the HPI. Physical Exam Physical Exam: General: WD/WN, vitals as above, NAD, sitting up in bed, pleasant, conversing appropriately. A+Ox3, euthymic affect. HEENT: Normocephalic, atraumatic. PERRL, conjunctivae normal, anicteric sclerae. External ear and nose normal, oropharynx normal. Respiratory: Normal respiratory effort, lungs clear to auscultation, no wheeze, rales, rhonchi. No accessory muscle use. Cardiovascular: Regular rate, rhythm, no murmur, normal peripheral pulses, no BLE edema. Vessels: No JVD. Abdomen/GI: Normal bowel sounds, soft, nontender, no hepatosplenomegaly. Extremities/Musculoskeletal: No cyanosis or clubbing, extremity motor strength 5/5 bilaterally. Neurologic: No focal deficits, CN's II-XI not formally tested but appear grossly intact bilaterally. Skin: No rashes, normal color, warm/dry. Results & Data Results & Data Vital Signs (Past 12 Hours) Vital Signs Temp Pulse Pulse Resp BP BP Pulse Ox 10/16/23 14:32 96 H 20 184/122 H 98 10/16/23 14:21 97 H 19 98 10/16/23 14:18 93 H 21 10/16/23 14:01 216/109 H 10/16/23 13:57 94 H 15 96 10/16/23 13:42 83 16 97 10/16/23 13:30 177/99 H 10/16/23 13:26 183/107 H 10/16/23 13:26 79 183/107 H 10/16/23 13:24 75 14 98 10/16/23 13:24 212/120 H 10/16/23 13:12 77 13 98 10/16/23 13:11 76 16 198/124 H 98 10/16/23 13:00 191/151 H 10/16/23 12:54 202/119 H 10/16/23 12:51 59 L 16 97 10/16/23 12:31 55 L 10/16/23 12:30 56 L 14 10/16/23 12:16 36.1 C L 80 20 228/111 H 92 O2 Del Method 10/16/23 14:32 Room Air 10/16/23 14:21 10/16/23 14:18 10/16/23 14:01 10/16/23 13:57 10/16/23 13:42 10/16/23 13:30 10/16/23 13:26 10/16/23 13:26 Room Air 10/16/23 13:24 10/16/23 13:24 10/16/23 13:12 10/16/23 13:11 Room Air 10/16/23 13:00 10/16/23 12:54 10/16/23 12:51 10/16/23 12:31 10/16/23 12:30 10/16/23 12:16 Room Air Laboratory Results Short CBC 10/16/23 Range/Units 12:27 WBC 4.46 L (4.8-10.8) K/ul Hgb 16.3 (14.0-18.0) g/dl Hct 48.4 (42.0-52.0) % Plt Count 151 (130-400) K/uL BMP 10/16/23 12:27 Sodium 139 Potassium 4.8 Chloride 105 Carbon Dioxide 29 BUN 13 Creatinine 1.06 Glucose 102 H Calcium 9.8 Liver Function 10/16/23 Range/Units 12:27 Total Bilirubin 0.7 (0.2-1.0) mg/dl AST 18 (13-39) U/L ALT 13 (7-52) U/L Alkaline Phosphatase 57 (34-104) U/L Albumin 4.6 (3.4-5.0) gm/dl Diagnostic Findings Head CT 10/16/23 12:21 CT OF THE HEAD WITHOUT CONTRAST CLINICAL HISTORY: Hypertensive urgency. COMPARISON STUDY: No previous studies for comparison. CT DOSE: 703.85 mGy.cm TECHNIQUE: Helical axial images of the head were obtained without IV contrast. Automated exposure control was utilized for the study. A dose lowering technique was utilized adhering to the principles of ALARA. FINDINGS: No acute intracranial hemorrhage, midline shift or mass effect is present. White matter hypodensities favor small vessel disease. The ventricular system is unremarkable. The basal cisterns are patent. No extra-axial collections are present. There are no findings to suggest acute dural sinus thrombosis or acute territorial infarct. No significant calvarial abnormalities are present. Visualized portions of the sinuses and mastoid air cells are clear. IMPRESSION: No acute intracranial findings. ACT 112: Negative or not required by law. Electronically signed by: To Croft M.D. 10/16/2023 2:05 PM Chest X-Ray 10/16/23 14:34 XR chest 1V portable CLINICAL HISTORY: Hypertension. COMPARISON STUDY: Chest CT February 07, 2022. Chest radiograph February 07, 2022. FINDINGS: There is no pneumothorax or pleural effusion. There is no consolidation. Pulmonary vascularity is normal. Cardiomediastinal silhouette is normal. There is underlying emphysema. IMPRESSION: No acute cardiopulmonary findings. ACT 112: Negative or not required by law. Electronically signed by: To Croft M.D. 10/16/2023 3:41 PM Medications Administered Discontinued Medications Hydralazine HCl (Hydralazine Hcl 20 Mg/Ml Vial) 10 mg IV NOW STA Stop: 10/16/23 12:22 Last Admin: 10/16/23 12:54 Dose: 10 mg Documented By: APRIL Labetalol HCl (Labetalol Hcl Iv 5 Mg/Ml 20ml) 10 mg IV NOW STA Stop: 10/16/23 14:30 Last Admin: 10/16/23 14:41 Dose: Not Given Documented By: TNK Code Status & VTE Plan Code Status FULL CODE Supervising Physician Co-Signing Physician Notes Attending Addendum: Case reviewed with the advanced practitioner. I have personally performed a history and physical examination on the patient. I have reviewed the advanced practitioner's documentation on the date of service referenced in note, and I agree with, and take responsibility for the plan of care. please refer to her notes for full details patient seen and examined, records reviewed by myself as well on exam, patient Seen resting in bed, sitting up and watching TV Not in distress Reports mild frontal headache, was warned by lithographic stripper that he may have some headache after the procedure No active chest pain, shortness of breath, nausea, abdominal pain, etc. no other symptoms VS noted and reviewed oriented X 3 , not in distress, speaks in sentences with no effort nor accessory muscle use Mild conjunctival redness right greater than left normal rate, regular rhythm, no murmurs Mild conjunctival redness right greater than left clear breath sounds bilaterally non distended, soft, nontender no bipedal edema, erythema, warmth no neuro deficits all labs, imaging noted and reviewed ASSESSMENT AND PLAN Hypertensive urgency Likely secondary to inadequate medication control Status post eye procedure today Given hydralazine IV and then amlodipine 5 mg p.o. and HCTZ 12.5 mg p.o. at the ER Blood pressure improving so far Goal systolic BP today is 150s to 160s HCTZ 12.5 mg p.o. ordered for tomorrow, along with his usual lisinopril 30 mg p.o. daily May need amlodipine 5 mg p.o. daily as well if blood pressure still not controlled tomorrow morning Mild troponin elevation Troponin 31, second troponin 22 No chest pain, cardiac symptoms Likely secondary to demand ischemia Echocardiogram ordered other diagnoses and plan of care as per advanced practitioner's notes Chacho Haynes MD
[2023-10-16] MEDS: LABETALOL HCL IV 5 MG/ML 20ML IV STA (14:41)
[2023-10-16] MEDS: hydroCHLOROthiazide 25 MG TAB PO STA (14:45)
[2023-10-16] MEDS: amLODIPine BESYLATE 5 MG TAB PO STA (14:45)
--- NOTE | 2023-10-16 14:50 | Electrocardiogram Report ---
Test Reason : Blood Pressure : */* mmHG Vent. Rate : 57 BPM Atrial Rate : 57 BPM P-R Int : 250 ms QRS Dur : 128 ms QT Int : 426 ms P-R-T Axes : 78 -23 53 degrees QTcB Int : 414 ms Sinus bradycardia with 1st degree A-V block Right bundle branch block Abnormal ECG When compared with ECG of 07-Feb-2022 14:25, Vent. rate has decreased by 34 bpm Nonspecific T wave abnormality no longer evident in Anterior leads Confirmed by Herman Rdz ([id number]) on 10/16/2023 2:50:23 PM Referred By: REFERRED SELF Confirmed By: Herman Rdz
--- NOTE | 2023-10-16 15:43 | XRay Report ---
XR chest 1V portable CLINICAL HISTORY: Hypertension. COMPARISON STUDY: Chest CT February 07, 2022. Chest radiograph February 07, 2022. FINDINGS: There is no pneumothorax or pleural effusion. There is no consolidation. Pulmonary vascular ity is normal. Cardiomediastinal silhouette is normal. There is underlying emphysema. IMPRESSION: No acute cardiopulmonary findings. ACT 112: Negative or not required by law. Electronically signed by: To Croft M.D. 10/16/2023 3:41 PM
[2023-10-16] MEDS: ACETAMINOPHEN 500 MG TAB PO STA (16:16)
[2023-10-16] MEDS ORDERED: hydrALAZINE HCL 20 MG/ML VIAL IV PRN (16:55)
[2023-10-16] MEDS ORDERED: IPRATROPIUM BROMIDE NEB SOLN 0.02% 0.5MG/2.5ML VIAL INH PRN (16:55)
[2023-10-16] MEDS ORDERED: ALBUTEROL HFA 8 GM INHALER INH PRN (16:55)
--- OUTSIDE RECORDS SUMMARY | 2023-10-16 18:28 | External Medical Summary | Summary of Care ---
Author Name Unknown Organization [facility] Address [address] [place] [address] Phone [phone] Care Team Providers Care Electrostatic Powder Coating Technician Name Role Phone Idalia Santana CHASIDY Primary Care Provider [phone] Encounter Details Date Type Department Care Team (Late st Contact Info) Description 10/06/2023 Orders Only Outcomes Research Department [address] [place], [place] [id number] Zoe Oshea CHRA [employer] Research Other*[id number] Allergies No known active allergiesdocumented as of this encounter (statuses as of 10/06/2023) Medications Medication Sig Dispensed Refills Start Date End Date Status LISINOPRIL 10 MG PO TABSIndications:HTN, goal below 140/90 One pill by mouth once a day 30 0 02/27/2009 Active Additional Information Patient taking differently: 30 mg, (No route reported), Take 3-10 mg tabs daily, Reported on 02/22/2020 Triamcinolone Acetonide 0.5 % creamIndications:Bug bites Apply topically to affected area 3 times a day. Apply to affected areas of itching. 30 g 0 11/02/2015 Active Aspirin 81 MG Tablet Take 81 mg by mouth daily. Active Vitamin C 500 MG Oral Tablet (ASCORBIC ACID) Take 500 mg by mouth daily. Active Vitamin D 125 MCG (5000 UT) Oral Capsule Take 1 Tab by mouth daily. Active Vitamin B-12 1000 MCG Oral Tablet Take 1,000 mcg by mouth daily. Active amLODIPine Besylate 5 MG Oral Tablet (NORVASC) Take 5 mg by mouth daily. Active Albuterol Sulfate HFA 108 (90 Base) MCG/ACT Inhalation Aerosol Solution Inhale 2 Puffs by mouth every 6 hours as needed. Active Budesonide-Formotero l Fumarate 160-4.5 MCG/ACT Inhalation Aerosol (Symbicort) Inhale 2 Puffs by mouth 2 times a day. Active documented as of this encounter (statuses as of 10/06/2023) Active Problems Problem Noted Date Diagnosed Date Impacted cerumen of right ear 10/10/2017 Left asymmetrical SNHL 10/10/2017 Bilateral temporomandibular joint pain 8 Deviated nasal septum 10/10/2017 Staghorn calculus 04/28/2015 Urolithiasis 04/25/2015 Dysfunction of eustachian tube 07/26/2006 ADVANCE DIRECTIVE INFORMATION 11/19/2004 Overview: No, Advance Directive brochure given to patient at prior appointment. Hemorrhoids, external without complications 10/08 Lupus erythematosus 04/16/2004 Overview: Dr Birmingham biopsied a lesion of his ear. Rosacea 06/04/2003 Cervicalgia 06/04/2003 Tobacco use disorder 06/04/2003 HTN, goal below 140/90 COPD, severity to be determined DENTURES documented as of this encounter (statuses as of 10/06/2023) Immunizations Name Administration Dates Next Due Seasonal Influenza, PF, 6 M & above, IM , (FluLaval or Fluzone) 12/11/2018 Seasonal Influenza, Split, IIV3, With Preserve, Inj 01/22/2016,01/27/2008 TDAP, Age 7 and older, IM (Adacel) 07/07/2007 documented as of this encounter Social History Tobacco Use Types Packs/Day Years Used Date Smoking Tobacco: Former Cigarettes 2 50 0 04/11/1959 - 04/11/2009 Smokeless Tobacco: Former Comments:quit and started on and off for years. Alcohol Use Standard Drinks/Week Comments Yes 0 (1 standard drink = 0.6 oz pur e alcohol) socially PHQ-2 Answer Date Recorded PHQ-2 Score 0 12/14/2018 Hunger Vital Sign Answer Date Recorded Worried About Running Out of Food in the Last Ye ar Never true 02/22/2020 Ran Out of Food in the Last Year Never true 02/22/2020 Utilities Answer Date Recorded Do you have trouble paying y our heating, water, or electric bill? (Adult - for ages 18 years and over) Not on file 08/26/2023 Is your family able to pay t he heat, water, or electric bill? (Household - for ages 0-17 years) Not on file 08/26/2023 Does your family have access to good internet? (Household - for ages 0-17 years) Not on file 08/26/2023 Social Connections Answer Date Recorded How often do you feel lonely or isolated from those around you? (Adult - for ages 18 years and over) Not on file 08/26/2023 Sex and Gender Information Value Date Recorded Sex Assigned at Not on file Gender Identity Not on file Sexual Orientation Not on file documented as of this encounter Plan of Treatment Scheduled Orders Name Type Priority Associated Diagnoses Orde r Schedule MYCODE INITIAL ADULT Lab Routine [employer] Research Other*[id number] Expected: 10/06/2023 (Approximate), Expires: 10/25/2024 Health Maintenance Due Date Last Done Comments Pneumococcal Vaccine: 65+ Years (1 of 2 - PCV) 1951 Albumin/Creatinine Ratio 1963 Alpha-1 Antitrypsin 1963 Hepatitis C Screening 1963 O2 ASSESSMENT COMPLETED IN PAST YEAR FOR COPD 1963 Lung Cancer Screening 1995 Zoster Vaccines (1 of 2) 1995 *COPD SEVERITY VERIFIED BY PFT 02/16/2015 GFR 04/29/2016 04/29/2015, 04/10, 04/25/2015, Additional history exists DTaP,Tdap,and Td Vaccines (2 - Td or Tdap) 07/06/2017 07/07/2007 Depression Screening 12/15/2019 12/14/2018 COVID-19 Vaccine (2022-24 season) 2022 Influenza Vaccine (FLU shot) (#1) 2023 12/11/2018, 01/22/2016, 01/27/2008 HPV (Gardasil) Vaccine Aged Out No lo nger eligible based on patient's age to complete this topic Hepatitis B Vaccine Aged Out No longe r eligible based on patient's age to complete this topic MENINGOCOCCAL (MENACTRA/MENVEO) Aged Out No longer eligible based on patient's age to complete this topic documented as of this encounter Medical Devices Implanted Type Area Senior Java Programmer Analyst Device Identifier Shelf Expiration Date Model / Serial / Lot Lens Intraoc 20.5 - [id number] - [id number] Implanted:Qty: 1 on 04/25/2020 by Stefan Lewis MD at OR [facility] Left: Eye [employer] 08/07/2024 [id number] / [id number] / [id number] Lens Intraoc 20.5 - [id number] - [id number] Implanted:Qty: 1 on 05/04/2020 by Stefan Lewis MD at OR [facility] Right: Eye [employer] 11/07/2024 [id number] / [id number] / [id number] documented as of this encounter Visit Diagnoses Diagnosis [employer] Research Other*[id number] documented in this encounter Advance Directives * Full Code (Latest Code Status on File) Date Activated Date Inactivated Comments 04/28/2015 9:44 AM 04/29/2015 7:51 PM Question Answer Comments Discussion of Advance Directives occurred with: Not Discussed Does the patient have a Living Will? No Does the patient have Health Care Power of Attor paddy? No * Full Code Date Activated Date Inactivated Comments 04/24/2015 11:43 AM 04/25/2015 5:57 PM Question Answer Comments Discussion of Advance Directives occurred with: Not Discussed Does the patient have a Living Will? No Does the patient have Health Care Power of Attor paddy? No * Full Code Date Activated Date Inactivated Comments 03/14/2015 11:49 AM 03/14/2015 5:53 PM This order re flects the patients wishes and were consensually agreed upon. Care Teams Electrostatic Powder Coating Technician Relationship Specialty Start Date End Date Idalia Santana CRNP [address] [place] [address] PCP - General Nurse Practitioner 04/25/20 documented as of this encounter
[2023-10-16] MEDS: ACETAMINOPHEN 325 MG TAB PO PRN (21:04)
[2023-10-17 07:09] LABS: Hematocrit (blood only) 46.3 % (42.0-52.0); Hemoglobin 15.5 g/dl (14.0-18.0); Mean Corpuscular Hgb Conc 33.5 g/dL (32.0-36.0); Mean Corpuscular Volume 92.6 fL (80.0-100.0); Mean Platelet Volume 10.2 fL (9.4-12.4); Platelet Count 143 K/uL (130-400); RDW Coefficient of Variation 13.2 % (11.5-14.5); RDW Standard Deviation 44.3 fL (36.4-46.3)
[2023-10-17 07:29] LABS: BUN Creatinine Ratio 13.9 (10-20); Calcium 9.4 mg/dl (8.6-10.3); Creatinine Clr Calc Pharmacy 59.8 ml/min; Est GFR (African American) 70.3 ml/min; Est GFR (Non-African American) 60.6 ml/min; Magnesium 1.9 mg/dl (1.7-2.4); Phosphorus 3.5 mg/dl (2.5-4.9); Potassium 4.1 mmol/L (3.5-5.1)
[2023-10-17] MEDS: FLUTICASONE/VILANTEROL 100/25MCG 14 PUFFS/INHALER INH SCH (08:29)
[2023-10-17] MEDS: hydroCHLOROthiazide 25 MG TAB PO SCH (08:29)
[2023-10-17] MEDS: ASPIRIN 81 MG ECTAB PO SCH (08:29)
[2023-10-17] MEDS: ASCORBIC ACID 500 MG TAB PO SCH (08:29)
[2023-10-17] MEDS: CYANOCOBALAMIN (B-12) 500 MCG TABLET PO SCH (08:29)
[2023-10-17] MEDS: lisinopril 40 MG TAB PO SCH (08:43)
[2023-10-17] MEDS: amLODIPine BESYLATE 5 MG TAB PO SCH (08:43)
[2023-10-17] MEDS ORDERED: lisinopril 10 MG TAB PO SCH (09:00)
[2023-10-17 09:01] VITALS: PULSE 75
--- NOTE | 2023-10-17 09:30 | Discharge Summary ---
Discharge Summary Date of Service October 17, 2023 Principal Dx & Hospital Course #1 = Principal Diagnosis (1) Hypertensive urgency: (2) Elevated troponin: Plan Patient was observed in the hospital. There was no significant arrhythmias on telemetry monitoring. Patient's troponin was trended only slightly elevated and remained flat. This is not indicative of a myocardial infarction. Suspect this may be mild elevation troponin due to demand ischemia associated with his hypertensive urgency. Patient was given additional oral antihypertensive medication including amlodipine and hydrochlorothiazide. This significantly improved his blood pressure. On the morning of discharge he was feeling well. No chest pain. No shortness of breath. His blood pressure was improved. Adjustments were made in his oral antihypertensive medications. He tolerated these doses. To be discharged home to follow-up with his outpatient provider for ongoing management of his hypertension. Notes For Next Care Provider May need further titration of blood pressure medications Medication Changes From Visit Lisinopril dose increase Amlodipine and hydrochlorothiazide added for blood pressure management Admission HPI Per Admitting Provider Bhavesh Espana is a 78y/o M with PMHx significant for COPD, HTN, dyslipidemia, history of urolithiasis, lupus erythematosus and history tobacco use disorder [quit 20 years ago, was previously 1-2 pack/day] who presented to the ED for evaluation via outpatient referral secondary to elevated blood pressure. History obtained from patient and associated chart review. 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 He was referred here secondary to an elevated systolic blood pressure in the 200s after undergoing the procedure in the clinic. He reports that he was to initially be transported here via EMS, but he decided to drive himself to the ED. Patient reports that he took his 30mg of lisinopril this morning and has not missed any doses recently. He used to check his blood pressure routinely at home, however he has not been doing so for a few months. He states that his blood pressure has not been under control for some time. He follows with the [facility] for primary care needs. He denies any chest pain, SOB, lightheaded/dizziness or headaches. Mentions he had a minor headache about a week ago, but it went away q uickly with some Tylenol. Patient reports that he has been dealing with some blurry vision in both eyes for the past few months, which is why he was seeing an [facility] specialist in the first place. He was previously told that his blurry vision is secondary to uncontrolled blood pressure. He denies any numbness or tingling in his extremities. No history of cardiac stents or history of DVT/PE. He is on 81mg aspirin daily, which he took this morning. Admission Exam Per Admitting Provider See H&P Discharge Exam Constitutional: Alert HEENT: Mucous membranes moist. Lungs: Clear to auscultation, decreased, no wheezes rales or rhonchi CV: S1-S2, regular Abdomen: Soft, nontender, nondistended Extremities: No significant edema Neuro: No focal deficits Psych: Cooperative, normal mood Updated Medication List Medication Instructions Recorded Confirmed Type albuterol sulfate 90 mcg/actuation 2 inh inhalation Q6H PRN 02/07/22 10/16/23 History aerosol inhaler Bronchospasm ipratropium bromide 0.02 % 0.5 mg (2.5 mL) inhalation Q6R PRN 02/09/22 10/16/23 Rx solution for inhalation shortness of breath or wheezing #75 mL levalbuterol HCl 1.25 mg/0.5 mL 1.25 mg (0.5 mL) inhalation Q6R 02/09/22 10/16/23 Rx solution for nebulization #30 ea ascorbate calcium (vitamin C) 500 500 mg PO DAILY 10/03/22 10/16/23 History mg tablet aspirin 81 mg tablet,delayed 81 mg PO DAILY 10/03/22 10/16/23 History release (Adult Low Dose Aspirin) lisinopril 10 mg tablet 30 mg PO DAILY 10/03/22 10/16/23 History mecobalamin (vitamin B12) 500 mcg 500 mcg PO DAILY 10/03/22 10/16/23 History chewable tablet budesonide-formoterol HFA 160 2 puff inhalation BID 10/16/23 10/16/23 History mcg-4.5 mcg/actuation aerosol inhaler (Symbicort) amlodipine 5 mg tablet (Norvasc) 5 mg PO QAM 30 days #30 tabs 10/17/23 Rx hydrochlorothiazide 25 mg tablet 12.5 mg (1/2 x 25 mg) PO QAM 30 10/17/23 Rx days #15 tabs lisinopril 40 mg tablet (Zestril) 40 mg PO DAILY 30 days #30 tabs 10/17/23 Rx Hospital Stay Data Consultations 10/16/23 14:30 ED Decision to Admit Stat Diagnostic Imagining Performed Reviewed imaging, laboratory and diagnostic studies. Pertinent findings as below. Troponin max reading 31.4 fluctuated throughout his stay minimal reading 22.2. This is not indicative of acute coronary syndrome. Most likely demand ischemia. CBC and BMP within normal ranges/stable 10/16/23 12:21 CT head/brain wo con Stat Pending Results Patient Have Any Pending Studies at Discharge: No Discharge Instructions Given to Patient (Per Discharging Provider) May need additional titration of blood pressure medications Total Time Total Time Spent Total Time Spent (In Minutes): 25
[2023-10-17 09:36] VITALS: RESP 16; TEMP 98.1; O2SAT 97
[2023-10-17 10:11] VITALS: BP 150/94
== END 2023-10-17 10:52 | disposition home or self-care (01) ==
LOC: 2N 12:08 → ED 12:08 → SUATTDRO 14:39 → 2N 16:24